=== PATIENT | female | born 1960 | race Caucasian/White ===

== ENCOUNTER → 2016-05-23 | Outpatient (CLI) | payer OTHER ==
--- NOTE | 2016-05-23 13:26 | US ---
EXAMINATION TYPE: US kidneys/renal and bladder DATE OF EXAM: 05/23/2016 12:43 PM COMPARISON: CT on PACS CLINICAL HISTORY: R31.9 Hematuria. EXAM MEASUREMENTS: Right Kidney: 10.0 x 5.1 x 3.9 cm Left Kidney: 10.0 x 5.0 x 4.6 cm Post Void Residual Volume: 9.0 mL Findings: Right Kidney: no hydro or masses seen Left Kidney: multiple small hyperechoic foci with largest shadowing noted mid pole = 0.3 x 0.3 x 0.4c m. Bladder: wnl Bilateral Jets seen: yes Normal Post Void Residual: yes IMPRESSION: Nonobstructing left-sided nephrolithiasis.
== END | disposition home or self-care (01) ==
LOC: RADUSWWP 12:13
PROVIDERS: ATTEND Family Medicine
DX: N20.0 Calculus of kidney (principal)
CPT/HCPCS: 76770

== ENCOUNTER → 2016-08-04 | Outpatient (CLI) | payer MEDICARE, OTHER ==
--- NOTE | 2016-08-04 19:50 | MR ---
EXAMINATION TYPE: MR brain wo con DATE OF EXAM: 08/04/2016 2:15 PM COMPARISON: CT 12/31/2013 HISTORY: 55-year-old female intermittent lightheadedness TECHNIQUE: Multiplanar, multisequence images of the brain and brainstem were acquired without IV con trast. Diffusion weighted imaging is performed. FINDINGS: No evidence for acute infarction, hemorrhage, mass, mass effect, midline shift, herniation, effacemen t of basal cisterns, or extra-axial fluid collection. The ventricles and sulci are age-appropriate. Major intracranial flow voids are intact. T2/FLAIR weighted sequences show moderate scattered burden of right white matter change located withi n the periventricular, subcortical, and deep white matter of both cerebral hemispheres. These number approximately 50-60 foci on each side. Midline structures demonstrate normal morphology. The craniocervical junction is normal. The visualized sinuses are clear and the globes are intact. IMPRESSION: 1. No acute intracranial abnormality seen. 2. Moderate scattered burden of T2 bright white matter change. This is nonspecific and probably relat es to chronic small vessel ischemic disease. Uncontrolled hypertension, vasculitis, and other demyeli nating processes are also in the differential.
== END | disposition home or self-care (01) ==
LOC: RADMRIMAIN 13:09
PROVIDERS: ATTEND Family Medicine
DX: R90.82 White matter disease, unspecified (principal); R42 Dizziness and giddiness
CPT/HCPCS: 70551

== ENCOUNTER → 2016-10-09 | Outpatient (CLI) | payer MEDICARE, OTHER ==
--- NOTE | 2016-10-09 22:25 | CONS ---
DATE OF CONSULTATION: REASON FOR CONSULTATION: Chronic insomnia. 56 -year-old female patient suffering from chronic insomnia. She is known to have chronic anxiety/depression/bipolar borderline personality along with history of fibromyalgia, peripheral neuropathy and chronic pain. The patient is coming in and she is concerned that her sleep quality is poor. She is averaging around 5 hours of sleep and she would like to typically get around 7 to 8 hours; however, she is unable to. It takes around 50 minutes to fall asleep, and it seems that she is waking up in the middle of night and sometimes unable to go back to sleep. She also admits to snore and occasionally she stops breathing as told by family members. In terms of her chronic insomnia, the patient is on the appropriate lifestyle adjustments. She is not drinking coffee. She is not taking any form of caffeinated beverages. She has tried Ambien and Lunesta in the past without any benefit. She is currently on a combination of clonidine 1 mg at nighttime, Trazodone 50 mg at nighttime, Vistaril and melatonin. She is working with Dr. Segura from psychiatry. She is feeling tired and sleepy during the day and she has trouble paying attention. No sleepwalking. No sleeptalking. No restlessness in the lower extremities. No leg kicks. ( ). PAST MEDICAL HISTORY: Anxiety/depression, hypothyroidism, peripheral neuropathy, fibromyalgia, chronic back pain, borderline personality disorder, chronic insomnia, and hypothyroidism. Surgical history is arthroscopy. ALLERGIES: Not known. MEDICATIONS: Include: 1. Klonopin 1 mg at bedtime. 2. Trazodone 30 mg 1 tablet at bedtime. 3. Vistaril 50 mg p.o. daily. 4. Synthroid 88 mcg p.o. daily. SOCIAL HISTORY: Smoker, 1 pack of cigarettes a day. No substance abuse. No alcoholism. No coffee intake. No stimulant intake. No IV drugs. FAMILY HISTORY: Negative for sleep apnea. REVIEW OF SYSTEMS: Twelve-point review of systems was done. Positive findings were mentioned above in the history of present illness. She looks very cachectic and thin. She takes less than 1000 calories of diet on a daily basis. BP is 122/55, pulse 60, respirations 14, temperature 98.2, saturation 95% on room air. Weight is 100, height is 63 inches. Neck size is 11. Salome score is 0. GENERAL APPEARANCE: Calm, comfortable. HEENT: Negative for JVD. There is no goiter, neck mass. LUNGS: Clear to auscultation. HEART: Sounds are regular rate and rhythm. Normal S1, S2. ABDOMEN: Soft, nontender. No organomegaly. EXTREMITIES: No edema. No cyanosis or clubbing. IMPRESSIONS: 1. Chronic insomnia. 2. Suspect obstructive sleep apnea contributing to her insomnia. 3. Fibromyalgia. 4. Chronic anxiety and depression. 5. Borderline personality disorder. 6. Hypothyroidism. 7. Peripheral neuropathy. PLAN: 1. Continue same medications. 2. Perform polysomnogram to assess the quality of her sleep, her ability to induce and maintain sleep and look for any other causes that can interrupt impaired sleep quality. 3. We will follow and make further recommendations based on results of the sleep study.
== END ==
LOC: SLEEP 16:52
PROVIDERS: ATTEND Internal Medicine Critical Care Medicine
DX: F51.04 Psychophysiologic insomnia (principal); M79.7 Fibromyalgia; F41.9 Anxiety disorder, unspecified; F32.9 Major depressive disorder, single episode, unspecified; E03.9 Hypothyroidism, unspecified; G62.9 Polyneuropathy, unspecified; Z79.899 Other long term (current) drug therapy
CPT/HCPCS: 99211

== ENCOUNTER → 2016-11-16 | Outpatient (CLI) | payer MEDICARE, OTHER ==
--- NOTE | 2016-11-16 17:22 | XR ---
EXAMINATION TYPE: XR ankle complete RT DATE OF EXAM: 11/16/2016 COMPARISON: NONE HISTORY: Pain and swelling TECHNIQUE: 3 views FINDINGS: Ankle mortise is anatomic. I see no fracture nor dislocation. Joint spaces are fairly joie l. IMPRESSION: Negative right ankle exam.
--- NOTE | 2016-11-16 17:23 | XR ---
EXAMINATION TYPE: XR abdomen acute w cxr DATE OF EXAM: 11/16/2016 COMPARISON: NONE HISTORY: TECHNIQUE: Supine, upright, and left side down lateral decubitus views of the abdomen are obtained. FINDINGS: Heart and mediastinum are normal. Lungs are clear. Bowel gas pattern is normal. There is no sign of i ntestinal obstruction or pneumoperitoneum. Fecal pattern is normal. There is no evidence of a mass. T here are clips from cholecystectomy. There are no pathologic calcifications over the kidneys. IMPRESSION: Nonacute abdomen. Normal chest.
== END | disposition home or self-care (01) ==
LOC: RADXRMAIN 16:47
PROVIDERS: ATTEND Family Medicine
DX: M25.471 Effusion, right ankle (principal); K59.00 Constipation, unspecified
CPT/HCPCS: 74022

== ENCOUNTER → 2017-04-23 | Outpatient (CLI) | payer MEDICARE, OTHER ==
--- NOTE | 2017-04-23 21:59 | WWHP ---
[facility] - HISTORY AND PHYSICAL DATE OF DICTATION: 04/23/2017 CHIEF COMPLAINT: The patient is here for her routine gynecologic exam. HPI: This is a 56-year-old, G6, P1-0-5-1 with an LMP of 2003. The patient is without gynecologic complaints. She is concerned that she has lost some muscle mass in the abdomen. She attributes this to the multiple abortions she had in the past. She is otherwise without complaints. She denies any postmenopausal bleeding. PAST MEDICAL HISTORY: Osteoporosis, history of kidney stones, depression, anxiety, fibromyalgia, hypothyroidism, and neuropathy. MEDICATIONS: 1. Fosamax 70 mg weekly. 2. Levothyroxine 88 mcg daily. 3. BuSpar 15 mg b.i.d. ALLERGIES: No known drug allergies. 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 SOCIAL HISTORY: She smokes about 12 cigarettes per day and denies alcohol and drug use. She is single and has been with her boyfriend since about 2013, but does not live with him and is not sexually active with him. She is considered disabled. REVIEW OF SYSTEMS: She has lost about 7 pounds over the last year. She denies respiratory or cardiac problems GI she has been having some intermittent constipation. PHYSICAL EXAM: Blood pressure 138/79, height 5 feet 2 inches, weight 97 pounds. BMI 18, temperature 98.2, pulse 69. This is a well-developed, thin white female who is alert and oriented x3, in no acute distress. HEENT is within normal limits. NECK: Supple without mass or thyromegaly. Chest and LUNGS: Clear to auscultation. HEART: Regular rate and rhythm. Breasts are without mass or discharge. Axillary exam is negative for adenopathy. Back negative for CVA tenderness. ABDOMEN: Soft, nontender, without palpable masses. Pelvic exam external genitalia reveals an irregular raised lesion of the left vulva on the labia majora measuring approximately 1.5 x 1.0 cm. The patient states this has been there a long time, but would like to have it removed. There are no other external genitalia lesions. Cervix and vagina reveals moderate atrophy without lesions. There is no evidence of prolapse. There is no evidence of cystocele and there is minimal bladder and urethral movement with cough and Valsalva. The uterus is small and mid to anterior in position and is nontender. There are no palpable adnexal masses or tenderness. Rectovaginal exam is negative for mass or tenderness and is negative for occult blood extremities nontender. IMPRESSION: 1. 56-year-old menopausal female with left vulvar lesion, which is slightly irregular, measuring approximately 1.5 x 1.0 cm. 2. Otherwise unremarkable gynecologic exam. PLAN: 1. Pap smear was deferred since she had a normal one last year. 2. Self breast examination was discussed. 3. Mammogram is due and a slip was given the patient for this. 4. Osteoporosis management was discussed. We have discussed the importance of adequate calcium, vitamin D and regular exercise. She will continue on Fosamax as prescribed by her primary care physician. 5. She will return at a later date for removal of the vulvar lesion and this will be sent for pathological examination. She will be scheduled for this appointment. 6. We have discussed the importance of quitting smoking. We discussed possible complications with smoking, including increased risk for COPD, lung cancer, worsening of osteoporosis as well as wasting away of muscles. 7. She will return in one year. MMODL / IJN: [id number] /
== END | disposition home or self-care (01) ==
LOC: WWCWWP 14:31
PROVIDERS: ATTEND Obstetrics & Gynecology
DX: Z53.9 Procedure and treatment not carried out, unspecified reason (principal)

== ENCOUNTER → 2017-05-01 | Day surgery (SDC) | payer MEDICARE, OTHER ==
--- NOTE | 2017-05-01 11:33 | P.PCN ---
Date of Procedure: 05/01/17 Preoperative Diagnosis: Left vulvar skin lesion Postoperative Diagnosis: Same Procedure(s) Performed: Excision of left vulvar skin lesion Anesthesia: local Surgeon: Ben Langston Estimated Blood Loss (ml): 1 Pathology: other (Left vulvar skin lesion) Condition: stable Disposition: same day Indications for Procedure: This was a 56 year old female with an LMP of 2003. The patient was found to have a left labia majora skin lesion which she states has grown larger during the past year. Operative Findings: The lesion on the left labia majora measured 1.6x1.0 cm. It appeared brown, raised and irregular. Description of Procedure: The procedure and possible risks and complications were discussed with the patient. The patient was placed in the lithotomy position. Betadine was used to prep the area. The lesion on the left labia majora measured 1.6x1.0 cm. Approximately 3cc of Lidocaine 1% was used for local anesthesia. Following determination of adequate anesthesia, the lesion was excised with a scalpel. A silver nitrate stick was used to stop small bleeding areas. 3-0 Vicryl suture was used to close the defect. Two interrupted sutures were place. The site was hemostatic. Antibiotic ointment and dressing were applied. The patient tolerated the procedure well. The EBL was 1cc. There were no complications. The lesion was sent for pathologic examination. The patient was instructed to remove the dressing in 24 hours, then apply and an antibiotic ointment two times daily. She was instructed to call if problems and to return in 2 weeks for a recheck and suture removal.
== END ==
LOC: WWCWWP 09:55
PROVIDERS: ATTEND Obstetrics & Gynecology
DX: A63.0 Anogenital (venereal) warts (principal)
CPT/HCPCS: 56605; 88305

== ENCOUNTER → 2017-10-07 | Outpatient (CLI) | payer MEDICARE, OTHER ==
[2017-10-07 15:08] LABS: Basophils % (A) 0 %; Eosinophils # (A) 0.1 k/uL (0-0.7); Eosinophils % (A) 3 %; HGB 14.9 gm/dL (11.4-16.0); Lymphocytes # (A) 1.4 k/uL (1.0-4.8); Lymphocytes % (A) 29 %; MCH 32.6 pg (25.0-35.0); MCHC 33.7 g/dL (31.0-37.0); MCV 96.7 fL (80.0-100.0); Mean Platelet Volume 6.3; Monocytes # (A) 0.3 k/uL (0-1.0); Monocytes % (A) 6 %; Neutrophils # (A) 2.9 k/uL (1.3-7.7); Neutrophils % (A) 61 %; Platelet Count 192 k/uL (150-450); RBC 4.55 m/uL (3.80-5.40); RDW 12.7 % (11.5-15.5); WBC 4.7 k/uL (3.8-10.6)
[2017-10-07 15:24] LABS: ALT 28 U/L (9-52); AST 25 U/L (14-36); Albumin 4.4 g/dL (3.5-5.0); Alkaline Phosphatase 50 U/L (38-126); Anion Gap 9 mmol/L; Blood Urea Nitrogen 12 mg/dL (7-17); Calcium 9.6 mg/dL (8.4-10.2); Carbon Dioxide 33 mmol/L (22-30); Chloride 99 mmol/L (98-107); Creatine Kinase 44 U/L (30-135); Glucose 92 mg/dL (74-99); Potassium 4.6 mmol/L (3.5-5.1); Sodium 141 mmol/L (137-145); Total Bilirubin 0.8 mg/dL (0.2-1.3); Total Protein 6.8 g/dL (6.3-8.2)
[2017-10-07 16:22] LABS: T4, Free (Free Thyroxine) 1.23 ng/dL (0.78-2.19)
[2017-10-08 01:18] LABS: Folate, Serum 20.8 ng/mL
== END | disposition home or self-care (01) ==
LOC: LABWHC1 14:48
PROVIDERS: ATTEND Family Medicine
DX: M79.89 Other specified soft tissue disorders (principal); E03.9 Hypothyroidism, unspecified; R31.9 Hematuria, unspecified
CPT/HCPCS: 36415; 80053; 82306; 82550; 82607; 82746; 84439; 84443; 85025

== ENCOUNTER 2017-11-11 17:03 | Observation (INO) | payer MEDICARE, OTHER ==
[2017-11-11 18:11] LABS: Amphetamine Screen,Urine Not Detected (NotDetected); Barbiturate Screen,Urine Not Detected (NotDetected); Benzodiazepines Screen,Urine Not Detected (NotDetected); Cocaine Screen,Urine Not Detected (NotDetected); Methadone Screen, Urine Not Detected (NotDetected); Opiate Screen,Urine Not Detected (NotDetected); Oxycodone Screen, Urine Not Detected (NotDetected); Phencyclidine Screen,Urine Not Detected (NotDetected); Tricyclic Antidepressant,Urine Not Detected (NotDetected); Urn Cannabinoid Scrn Not Detected (NotDetected)
[2017-11-11 18:14] LABS: Appearance,Urine Clear (Clear); Bilirubin,Urine Negative (Negative); Blood,Urine Small (Negative); Calcium Oxalate Crystals,Urine Rare /hpf; Color,Urine Colorless; Glucose,Urine (UA) Negative (Negative); Ketones,Urine Negative (Negative); Leukocyte Esterase,Urine Negative (Negative); Mucus,Urine Rare /hpf; Nitrite,Urine Negative (Negative); Protein,Urine Negative (Negative); RBC,Urine <1 /hpf (0-5); Specific Gravity,Urine 1.002 (1.001-1.035); Urobilinogen,Urine <2.0 mg/dL (<2.0)
--- NOTE | 2017-11-11 18:15 | ED ---
Psych HPI - General Source: patient, police, EMS, RN notes reviewed Mode of arrival: EMS Limitations: no limitations <Humberto Bustos - Last Filed: 11/11/17 18:14> <Simone Johnson - Last Filed: 11/11/17 22:09> - General Chief Complaint: Psychiatric Symptoms Stated Complaint: EPS eval Time Seen by Provider: 11/11/17 17:09 - History of Present Illness Initial Comments: This a 57-year-old female presents emergency Department with police for psychiatric evaluation. Patient reportedly was threatening to harm herself with a knife. She states that she was a cut her wrist. She is denying this at this time stating that she was just upset that she's had her back weekend. Patient reportedly took 3 Flexeril but states that she was not trying to harm herself. Patient also states that she drank a few beers today. Patient denies any homicidal ideation denies any drug use. Patient does have a history of psychiatric disorder is currently being seen at [facility]. She denies chest pain, shortness breath, headache, dizziness, nausea or vomiting. (Humberto Bustos) - Related Data Home Medications Medication Instructions Recorded Confirmed DULoxetine HCL [Cymbalta] 60 mg PO BID 11/11/17 11/11/17 Levothyroxine Sodium [Synthroid] 100 mcg PO DAILY 11/11/17 11/11/17 clonazePAM [KlonoPIN] 1 mg PO HS 11/11/17 11/11/17 diphenhydrAMINE [Benadryl] 50 mg PO BID 11/11/17 11/11/17 traZODone HCL 50 mg PO HS 11/11/17 11/11/17 Previous Rx's Medication Instructions Recorded busPIRone HCl [Buspar] 30 mg PO BID #60 tab 01/11/14 traZODone HCL 100 mg PO HS 5 Days tab 03/23/16 Allergies Allergy/AdvReac Type Severity Reaction Status Date / Time No Known Allergies Allergy Unverified 11/11/17 17:35 Review of Systems ROS Other: All systems not noted in ROS Statement are negative. <Humberto Bustos - Last Filed: 11/11/17 18:14> ROS Other: All systems not noted in ROS Statement are negative. <Simone Johnson - Last Filed: 11/11/17 22:09> ROS Statement: Those systems with pertinent positive or pertinent negative responses have been documented in the HPI. Past Medical History Past Medical History: Fibromyalgia, Thyroid Disorder Additional Past Medical History / Comment(s): muscle wasting History of Any Multi-Drug Resistant Organisms: None Reported Past Surgical History: Orthopedic Surgery Additional Past Surgical History / Comment(s): Surgey on bilateral knees in 2005. Torn cartilage. Gallstones surgically removed. carpal tunnel right hand surgery Past Anesthesia/Blood Transfusion Reactions: No Reported Reaction Additional Past Anesthesia/Blood Transfusion Reaction / Comment(s): Patient denies. Past Psychological History: Anxiety, Depression, Panic Disorder Smoking Status: Heavy tobacco smoker Past Alcohol Use History: Occasional Past Drug Use History: None Reported - Past Family History Mother Family Medical History: Cancer Father Family Medical History: Cancer Additional Family Medical History / Comment(s): Mother and father from lung cancer. <Humberto Bustos - Last Filed: 11/11/17 18:14> General Exam General appearance: alert, in no apparent distress, anxious Head exam: Present: atraumatic, normocephalic, normal inspection Eye exam: Present: normal appearance, PERRL, EOMI. Absent: scleral icterus, conjunctival injection, periorbital swelling ENT exam: Present: normal exam, normal oropharynx, mucous membranes moist, TM's normal bilaterally Neck exam: Present: normal inspection. Absent: tenderness, meningismus, lymphadenopathy Respiratory exam: Present: normal lung sounds bilaterally. Absent: respiratory distress, wheezes, rales, rhonchi, stridor Cardiovascular Exam: Present: regular rate, normal rhythm, normal heart sounds. Absent: systolic murmur, diastolic murmur, rubs, gallop, clicks Neurological exam: Present: alert, oriented X3, CN II-XII intact Psychiatric exam: Present: agitated, anxious Skin exam: Present: warm, dry, intact, normal color. Absent: rash <Humberto Bustos - Last Filed: 11/11/17 18:14> Course <Humberto Bustos - Last Filed: 11/11/17 18:14> <Simone Johnson - Last Filed: 11/11/17 22:09> Vital Signs 11/11/17 17:14 Temperature 100.0 F H Pulse Rate 81 Respiratory 20 Rate Blood Pressure 123/70 O2 Sat by Pulse 97 Oximetry - Reevaluation(s) Reevaluation #1: 11/11/17 22:08 Patient was earlier seen by mental health services however was too drowsy to be evaluated. Patient reevaluated by myself, Dr. Johnson. Patient remains drowsy. Patient is easily arousable. Patient does not fully oriented. No meningismus. Dr. Laird has been paged for hospital admission. (Simone Johnson) - Lab Data Lab Results 11/11/17 Range/Units 17:16 Urine Color Colorless Urine Appearance Clear (Clear) Urine pH 6.0 (5.0-8.0) Ur Specific [place] 1.002 (1.001-1.035) Urine Protein Negative (Negative) Urine Glucose (UA) Negative (Negative) Urine Ketones Negative (Negative) Urine Blood Small H (Negative) Urine Nitrite Negative (Negative) Urine Bilirubin Negative (Negative) Urine Urobilinogen <2.0 (<2.0) mg/dL Ur Leukocyte Esterase Negative (Negative) Urine RBC <1 (0-5) /hpf Calcium Oxalate Crystal Rare H (None) /hpf Urine Mucus Rare H (None) /hpf Urine Opiates Screen Not Detected (NotDetected) Ur Oxycodone Screen Not Detected (NotDetected) Urine Methadone Screen Not Detected (NotDetected) Ur Propoxyphene Screen Not Detected (NotDetected) Ur Barbiturates Screen Not Detected (NotDetected) U Tricyclic Antidepress Not Detected (NotDetected) Ur Phencyclidine Scrn Not Detected (NotDetected) Ur Amphetamines Screen Not Detected (NotDetected) U Methamphetamines Scrn Not Detected (NotDetected) U Benzodiazepines Scrn Not Detected (NotDetected) Urine Cocaine Screen Not Detected (NotDetected) U Marijuana (THC) Screen Not Detected (NotDetected) Disposition <Humberto Bustos - Last Filed: 11/11/17 18:14> Is patient prescribed a controlled substance at d/c from ED?: No Decision Time: 22:09 <Simone Johnson - Last Filed: 11/11/17 22:09> Clinical Impression: Suicide attempt, Drug overdose Disposition: ADMITTED IP TO THIS HOSP Referrals: None,Stated [Primary Care Provider] - 1-2 days
[2017-11-11] MEDS ORDERED: NALOXONE 0.4 MG/ML 1 ML VIAL IV PRN (22:10)
[2017-11-11 23:26] LABS: Basophils % (A) 1 %; Eosinophils # (A) 0.1 k/uL (0-0.7); Eosinophils % (A) 3 %; HCT 41.2 % (34.0-46.0); HGB 13.9 gm/dL (11.4-16.0); Lymphocytes # (A) 1.6 k/uL (1.0-4.8); Lymphocytes % (A) 45 %; MCHC 33.8 g/dL (31.0-37.0); MCV 94.6 fL (80.0-100.0); Mean Platelet Volume 6.7; Monocytes # (A) 0.3 k/uL (0-1.0); Monocytes % (A) 8 %; Neutrophils # (A) 1.5 k/uL (1.3-7.7); Neutrophils % (A) 42 %; Platelet Count 182 k/uL (150-450); RBC 4.36 m/uL (3.80-5.40); RDW 12.4 % (11.5-15.5); WBC 3.7 k/uL (3.8-10.6)
[2017-11-11] MEDS: SODIUM CHLORIDE 0.9% 1,000 ML IV SCH (23:34)
[2017-11-11 23:35] LABS: ALT 31 U/L (9-52); AST 30 U/L (14-36); Acetaminophen <10.0 ug/mL; Albumin 3.9 g/dL (3.5-5.0); Alkaline Phosphatase 47 U/L (38-126); Anion Gap 3 mmol/L; Blood Urea Nitrogen 5 mg/dL (7-17); Calcium 9.3 mg/dL (8.4-10.2); Carbon Dioxide 32 mmol/L (22-30); Chloride 106 mmol/L (98-107); Glucose 87 mg/dL (74-99); Potassium 4.6 mmol/L (3.5-5.1); Salicylate <1.0 mg/dL; Sodium 141 mmol/L (137-145); Total Bilirubin 0.8 mg/dL (0.2-1.3); Total Protein 6.2 g/dL (6.3-8.2)
[2017-11-12 05:49] VITALS: BMI 17.7
[2017-11-12] MEDS: SODIUM CHLORIDE 0.9% 1,000 ML IV SCH (12:54)
[2017-11-12 15:38] VITALS: BP 133/77; PULSE 70; RESP 16; TEMP 97.2
--- NOTE | 2017-11-12 17:06 | P.HPIM ---
History of Present Illness 57-year-old female came to ER for psychiatric evaluation apparently took about 4 pills of Flexeril because of his the itch patient was admitted to medicine patient the common is metabolic profile essentially within normal limits patient is awake and alert. Patient apparently was threatening to harm herself with knife. But patient denied any suicidal or homicidal ideations to me patient is appropriate. Patient was evaluated by psychiatric related who cleared her for discharge patient will be discharged today. Patient denied any suicidal ideations. Patient evidently had history of bipolar disorder and multiple psychiatric hospitalizations patient is not willing to voluntarily get admitted to psychiatric floor. Patient states she took Flexeril to go to sleep was not trying to hurt herself or hurt anyone. Review of Systems REVIEW OF SYSTEMS: CONSTITUTIONAL: No fever, no malaise, no fatigue. HEENT: No recent visual problems or hearing problems. Denied any sore throat. CARDIOVASCULAR: No chest pain, orthopnea, PND, no palpitations, no syncope. PULMONARY: No shortness of breath, no cough, no hemoptysis. GASTROINTESTINAL: No diarrhea, no nausea, no vomiting, no abdominal pain. Normoactive bowel sounds. NEUROLOGICAL: No headaches, no weakness, no numbness. HEMATOLOGICAL: Denies any bleeding or petechiae. GENITOURINARY: Denies any burning micturition, frequency, or urgency. MUSCULOSKELETAL/RHEUMATOLOGICAL: Denies any joint pain, swelling, or any muscle pain. ENDOCRINE: Denies any polyuria or polydipsia. The rest of the 14-point review of systems is negative. Past Medical History Past Medical History: Fibromyalgia, Thyroid Disorder Additional Past Medical History / Comment(s): muscle wasting History of Any Multi-Drug Resistant Organisms: None Reported Past Surgical History: Orthopedic Surgery Additional Past Surgical History / Comment(s): Surgey on bilateral knees in 2005. Torn cartilage. Gallstones surgically removed. carpal tunnel right hand surgery Past Anesthesia/Blood Transfusion Reactions: No Reported Reaction Additional Past Anesthesia/Blood Transfusion Reaction / Comment(s): Patient denies. Past Psychological History: Anxiety, Depression, Panic Disorder Additional Psychological History / Comment(s): [place] Personality Disorder, Body Dysmorphia. Patient reports she is open with [facility]. Dr. Rosenthal is her psychiatrist and Alina Urban is her therapist. Patient has history of 2 [facility] addmission. Most recent was at [facility] for suicide attempt. Smoking Status: Heavy tobacco smoker Past Alcohol Use History: Occasional Additional Past Alcohol Use History / Comment(s): pt denies alcohol use. Past Drug Use History: Marijuana - Past Family History Mother Family Medical History: Cancer Father Family Medical History: Cancer Additional Family Medical History / Comment(s): Mother and father from lung cancer. Medications and Allergies Home Medications Medication Instructions Recorded Confirmed Type busPIRone HCl [Buspar] 30 mg PO BID #60 tab 01/11/14 11/11/17 Rx traZODone HCL 100 mg PO HS 5 Days tab 03/23/16 11/11/17 Rx DULoxetine HCL [Cymbalta] 60 mg PO BID 11/11/17 11/11/17 History Levothyroxine Sodium [Synthroid] 100 mcg PO DAILY 11/11/17 11/11/17 History clonazePAM [KlonoPIN] 1 mg PO HS 11/11/17 11/11/17 History diphenhydrAMINE [Benadryl] 50 mg PO BID 11/11/17 11/11/17 History traZODone HCL 50 mg PO HS 11/11/17 11/11/17 History Allergies Allergy/AdvReac Type Severity Reaction Status Date / Time No Known Allergies Allergy Unverified 11/11/17 17:35 Physical Exam Vitals: Vital Signs Temp Pulse Pulse Resp BP BP Pulse Ox 11/12/17 16:00 16 11/12/17 14:30 97.2 F L 70 16 133/77 93 L 11/12/17 12:34 58 L 24 11/12/17 08:00 18 11/12/17 05:22 97.3 F L 60 19 133/70 93 L 11/11/17 23:49 97.0 F L 62 17 126/81 99 11/11/17 22:00 97.9 F 57 L 16 126/71 96 11/11/17 17:14 100.0 F H 81 20 123/70 97 Intake and Output 11/12/17 11/12/17 11/12/17 06:59 14:59 22:59 Intake Total 600 Balance 600 Intake: Oral 600 Other: # Voids 1 3 Weight 43.99 kg 43.99 kg PHYSICAL EXAMINATION: GENERAL: The patient is alert and oriented x3, not in any acute distress. Well developed, well nourished. HEENT: Pupils are round and equally reacting to light. EOMI. No scleral icterus. No conjunctival pallor. Normocephalic, atraumatic. No pharyngeal erythema. No thyromegaly. CARDIOVASCULAR: S1 and S2 present. No murmurs, rubs, or gallops. PULMONARY: Chest is clear to auscultation, no wheezing or crackles. ABDOMEN: Soft, nontender, nondistended, normoactive bowel sounds. No palpable organomegaly. MUSCULOSKELETAL: No joint swelling or deformity. EXTREMITIES: No cyanosis, clubbing, or pedal edema. Patient does have couple scratches in the left forearm which appeared to be from knife NEUROLOGICAL: Gross neurological examination did not reveal any focal deficits. SKIN: No rashes. Results CBC & Chem 7: 11/11/17 23:11 11/11/17 23:11 Labs: Abnormal Lab Results - Last 24 Hours (Table) 11/11/17 11/11/17 11/11/17 Range/Units 17:16 23:11 23:11 WBC 3.7 L (3.8-10.6) k/uL Carbon Dioxide 32 H (22-30) mmol/L BUN 5 L (7-17) mg/dL Total Protein 6.2 L (6.3-8.2) g/dL Urine Blood Small H (Negative) Calcium Oxalate Crystal Rare H (None) /hpf Urine Mucus Rare H (None) /hpf Thrombosis Risk Factor Assmnt - Choose All That Apply Any of the Below Risk Factors Present?: Yes Each Factor Represents 1 point: Age 41-60 years Other Risk Factors: No Other congenital or acquired thrombophilia - If yes, enter type in comment: No Thrombosis Risk Factor Assessment Total Risk Factor Score: 1 Thrombosis Risk Factor Assessment Level: Low Risk Assessment and Plan Plan: Overdose on Flexeril: Patient is clinically stable at this point of time where he'll wake patient is medically stable to be discharged patient will be discharged if cleared by psychiatric -Possibly of suicidal ideations although she denied any suicide attempt to me. Patient of discharge depending on psychiatric evaluation. -Hypothyroidism -Fibromyalgia. -Continued smoking with some mild tracheobronchitis and possibility of COPD without any significant exacerbation, counseling regarding smoking was provided and do not believe patient will require antibiotics.
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
== END 2017-11-12 19:05 | disposition home or self-care (01) ==
LOC: EC 17:03 → 4MS4W 22:12
PROVIDERS: ADMIT Hospitalist; ATTEND Hospitalist
DX: T48.1X2A Poisoning by skeletal muscle relaxants [neuromuscular blocking agents], intentional self-harm, initial encounter (principal); M79.7 Fibromyalgia; E03.9 Hypothyroidism, unspecified; J40 Bronchitis, not specified as acute or chronic; M62.50 Muscle wasting and atrophy, not elsewhere classified, unspecified site; F41.0 Panic disorder [episodic paroxysmal anxiety]; F31.9 Bipolar disorder, unspecified; F60.9 Personality disorder, unspecified; F41.9 Anxiety disorder, unspecified; Z90.49 Acquired absence of other specified parts of digestive tract; Z91.5 Personal history of self-harm; F17.200 Nicotine dependence, unspecified, uncomplicated; Z79.890 Hormone replacement therapy; Z79.899 Other long term (current) drug therapy; Z80.1 Family history of malignant neoplasm of trachea, bronchus and lung
CPT/HCPCS: 99285 ×2; 82075; 80053; 85025; 81001; 80306; 83520 ×2; G0378 ×2

== ENCOUNTER 2017-12-06 13:11 | Emergency (ER) | payer MEDICARE, OTHER ==
[2017-12-06 13:22] VITALS: RESP 18
[2017-12-06] MEDS ORDERED: SODIUM CHLORIDE 0.9% 500 ML IV STA (13:27)
[2017-12-06 13:41] LABS: Basophils % (A) 0 %; Eosinophils # (A) 0.1 k/uL (0-0.7); Eosinophils % (A) 1 %; HGB 13.9 gm/dL (11.4-16.0); Lymphocytes # (A) 2.2 k/uL (1.0-4.8); Lymphocytes % (A) 37 %; MCH 31.4 pg (25.0-35.0); MCHC 33.1 g/dL (31.0-37.0); Mean Platelet Volume 6.7; Monocytes # (A) 0.3 k/uL (0-1.0); Monocytes % (A) 6 %; Neutrophils # (A) 3.4 k/uL (1.3-7.7); Neutrophils % (A) 55 %; Platelet Count 232 k/uL (150-450); RBC 4.43 m/uL (3.80-5.40); RDW 12.6 % (11.5-15.5); WBC 6.1 k/uL (3.8-10.6)
--- NOTE | 2017-12-06 13:45 | ED ---
General Adult HPI - General Source: patient, EMS, RN notes reviewed Mode of arrival: EMS Limitations: no limitations <Ketan Leos - Last Filed: 12/06/17 16:51> <Alcon Zee - Last Filed: 12/06/17 19:21> - General Chief complaint: Psychiatric Symptoms Stated complaint: Overdose Time Seen by Provider: 12/06/17 13:15 - History of Present Illness Initial comments: This is a 57-year-old who presents to the emergency department after having overdosed on 8 BuSpar and 6 Klonopin as well as drink alcohol. Patient states she suicidal and she took the pills try to kill himself. Patient denies any other legal or illegal drugs. Patient was not very cooperative would not give me any history at this time other than this a physically she has no problems. ( Ketan Leos) - Related Data Home Medications Medication Instructions Recorded Confirmed Levothyroxine Sodium [Synthroid] 100 mcg PO DAILY 11/11/17 12/06/17 clonazePAM [KlonoPIN] 1 mg PO HS 11/11/17 12/06/17 diphenhydrAMINE [Benadryl] 50 mg PO BID 11/11/17 12/06/17 traZODone HCL 50 mg PO HS 11/11/17 12/06/17 FLUoxetine HCL [PROzac] 20 mg PO DAILY 12/06/17 12/06/17 Previous Rx's Medication Instructions Recorded busPIRone HCl [Buspar] 30 mg PO BID #60 tab 01/11/14 traZODone HCL 100 mg PO HS 5 Days tab 03/23/16 Allergies Allergy/AdvReac Type Severity Reaction Status Date / Time No Known Allergies Allergy Verified 12/06/17 13:22 Review of Systems ROS Other: All systems not noted in ROS Statement are negative. <Ketan Leos - Last Filed: 12/06/17 16:51> ROS Other: All systems not noted in ROS Statement are negative. <Alcon Zee - Last Filed: 12/06/17 19:21> ROS Statement: Those systems with pertinent positive or pertinent negative responses have been documented in the HPI. Past Medical History Past Medical History: Fibromyalgia, Thyroid Disorder Additional Past Medical History / Comment(s): muscle wasting History of Any Multi-Drug Resistant Organisms: None Reported Past Surgical History: Orthopedic Surgery Additional Past Surgical History / Comment(s): Surgey on bilateral knees in 2005. Torn cartilage. Gallstones surgically removed. carpal tunnel right hand surgery Past Anesthesia/Blood Transfusion Reactions: No Reported Reaction Additional Past Anesthesia/Blood Transfusion Reaction / Comment(s): Patient denies. Past Psychological History: Anxiety, Depression, Panic Disorder Smoking Status: Heavy tobacco smoker Past Alcohol Use History: Occasional Past Drug Use History: Marijuana - Past Family History Mother Family Medical History: Cancer Father Family Medical History: Cancer Additional Family Medical History / Comment(s): Mother and father from lung cancer. <Ketan Leos - Last Filed: 12/06/17 16:51> General Exam Limitations: no limitations <Ketan Leos - Last Filed: 12/06/17 16:51> <Alcon Zee - Last Filed: 12/06/17 19:21> - General Exam Comments Initial Comments: GENERAL: Patient is well-developed and well-nourished. Patient is nontoxic and well- hydrated and is in no acute distress. Patient appears intoxicated ENT: Neck is soft and supple. No significant lymphadenopathy is noted. Oropharynx is clear. Moist mucous membranes. Neck has full range of motion without eliciting any pain. EYES: The sclera were anicteric and conjunctiva were pink and moist. Extraocular movements were intact and pupils were equal round and reactive to light. Eyelids were unremarkable. PULMONARY: Unlabored respirations. Good breath sounds bilaterally. No audible rales rhonchi or wheezing was noted. CARDIOVASCULAR: There is a regular rate and rhythm without any murmurs gallops or rubs. ABDOMEN: Soft and nontender with normal bowel sounds. SKIN: Skin is clear with no lesions or rashes and otherwise unremarkable. NEUROLOGIC: Patient is alert and oriented x3. Cranial nerves II through XII are grossly intact. Motor and sensory are also intact. Normal speech, volume and content. Symmetrical smile. MUSCULOSKELETAL: Normal extremities with adequate strength and full range of motion. LYMPHATICS: No significant lymphadenopathy is noted PSYCHIATRIC: Patient states she suicidal and she is very agitated and aggressive. (Ketan Leos) Vital Signs 12/06/17 12/06/17 12/06/17 13:16 13:43 16:52 Temperature 98 F Pulse Rate 79 77 66 Respiratory 18 18 18 Rate Blood Pressure 122/61 107/55 122/58 O2 Sat by Pulse 95 96 98 Oximetry Procedures - Restraint - Face to Face Restraint Occurrence 1 Patient's Immediate Situation: Endangers others' safety Patient's Reaction to the Intervention: Uncooperative, Belligerent Patient's Medical & Behavioral Condition: Awake, Alert Need to Continue or Terminate Restraint or Seclusion: Continue Face to Face Eval of Restraint Date: 12/06/17 Face to Face Eval of Restraint Time: 13:34 <Ketan Leos - Last Filed: 12/06/17 16:51> Medical Decision Making - Lab Data Result diagrams: 12/06/17 13:26 12/06/17 13:26 <Ketan Leos - Last Filed: 12/06/17 16:51> - Lab Data Result diagrams: 12/06/17 13:26 12/06/17 13:26 <Alcon Zee - Last Filed: 12/06/17 19:21> - Medical Decision Making EKG shows normal sinus rhythm at 82 bpm IN interval 268 QRSs 84 Q-T intervals 398 QTC is 464. Patient's EKG shows no ST segment elevation or depression or T wave abnormalities are noted. Dr. Zee will be taking over the care of this patient at 5 PM (Ketan Leos) Patient's care is signed out at shift change awaiting sobriety and EPS evaluation. Patient is sober on reevaluation. She is cleared medically. She is alert and oriented, denies suicidal or homicidal ideation. She is evaluated by EPS, no need for inpatient treatment at this time. She will be discharged home with outpatient [facility] follow-up. (Alcon Zee) - Lab Data Lab Results 12/06/17 12/06/17 12/06/17 Range/Units 13:26 13:26 14:06 WBC 6.1 (3.8-10.6) k/uL RBC 4.43 (3.80-5.40) m/uL Hgb 13.9 (11.4-16.0) gm/dL Hct 42.0 (34.0-46.0) % MCV 95.0 (80.0-100.0) fL MCH 31.4 (25.0-35.0) pg MCHC 33.1 (31.0-37.0) g/dL RDW 12.6 (11.5-15.5) % Plt Count 232 (150-450) k/uL Neutrophils % 55 % Lymphocytes % 37 % Monocytes % 6 % Eosinophils % 1 % Basophils % 0 % Neutrophils # 3.4 (1.3-7.7) k/uL Lymphocytes # 2.2 (1.0-4.8) k/uL Monocytes # 0.3 (0-1.0) k/uL Eosinophils # 0.1 (0-0.7) k/uL Basophils # 0.0 (0-0.2) k/uL Sodium 140 (137-145) mmol/L Potassium 3.7 (3.5-5.1) mmol/L Chloride 104 (98-107) mmol/L Carbon Dioxide 23 (22-30) mmol/L Anion Gap 13 mmol/L BUN 11 (7-17) mg/dL Creatinine 0.69 (0.52-1.04) mg/dL Est GFR (CKD-EPI)AfAm >90 (>60 ml/min/1.73 sqM) Est GFR (CKD-EPI)NonAf >90 (>60 ml/min/1.73 sqM) Glucose 84 (74-99) mg/dL Calcium 9.6 (8.4-10.2) mg/dL Total Bilirubin 0.3 (0.2-1.3) mg/dL AST 25 (14-36) U/L ALT 21 (9-52) U/L Alkaline Phosphatase 47 (38-126) U/L Total Protein 6.8 (6.3-8.2) g/dL Albumin 4.4 (3.5-5.0) g/dL Urine HCG, Qual (Not Detectd) Salicylates <1.0 mg/dL Urine Opiates Screen Not Detected (NotDetected) Ur Oxycodone Screen Not Detected (NotDetected) Urine Methadone Screen Not Detected (NotDetected) Ur Propoxyphene Screen Not Detected (NotDetected) Acetaminophen <10.0 ug/mL Ur Barbiturates Screen Not Detected (NotDetected) U Tricyclic Antidepress Not Detected (NotDetected) Ur Phencyclidine Scrn Not Detected (NotDetected) Ur Amphetamines Screen Not Detected (NotDetected) U Methamphetamines Scrn Not Detected (NotDetected) U Benzodiazepines Scrn Not Detected (NotDetected) Urine Cocaine Screen Not Detected (NotDetected) U Marijuana (THC) Screen Detected H (NotDetected) Serum Alcohol 99 mg/dL 12/06/17 Range/Units 14:06 WBC (3.8-10.6) k/uL RBC (3.80-5.40) m/uL Hgb (11.4-16.0) gm/dL Hct (34.0-46.0) % MCV (80.0-100.0) fL MCH (25.0-35.0) pg MCHC (31.0-37.0) g/dL RDW (11.5-15.5) % Plt Count (150-450) k/uL Neutrophils % % Lymphocytes % % Monocytes % % Eosinophils % % Basophils % % Neutrophils # (1.3-7.7) k/uL Lymphocytes # (1.0-4.8) k/uL Monocytes # (0-1.0) k/uL Eosinophils # (0-0.7) k/uL Basophils # (0-0.2) k/uL Sodium (137-145) mmol/L Potassium (3.5-5.1) mmol/L Chloride (98-107) mmol/L Carbon Dioxide (22-30) mmol/L Anion Gap mmol/L BUN (7-17) mg/dL Creatinine (0.52-1.04) mg/dL Est GFR (CKD-EPI)AfAm (>60 ml/min/1.73 sqM) Est GFR (CKD-EPI)NonAf (>60 ml/min/1.73 sqM) Glucose (74-99) mg/dL Calcium (8.4-10.2) mg/dL Total Bilirubin (0.2-1.3) mg/dL AST (14-36) U/L ALT (9-52) U/L Alkaline Phosphatase (38-126) U/L Total Protein (6.3-8.2) g/dL Albumin (3.5-5.0) g/dL Urine HCG, Qual Not Detected (Not Detectd) Salicylates mg/dL Urine Opiates Screen (NotDetected) Ur Oxycodone Screen (NotDetected) Urine Methadone Screen (NotDetected) Ur Propoxyphene Screen (NotDetected) Acetaminophen ug/mL Ur Barbiturates Screen (NotDetected) U Tricyclic Antidepress (NotDetected) Ur Phencyclidine Scrn (NotDetected) Ur Amphetamines Screen (NotDetected) U Methamphetamines Scrn (NotDetected) U Benzodiazepines Scrn (NotDetected) Urine Cocaine Screen (NotDetected) U Marijuana (THC) Screen (NotDetected) Serum Alcohol mg/dL Disposition <Ketan Leos - Last Filed: 12/06/17 16:51> Is patient prescribed a controlled substance at d/c from ED?: No Time of Disposition: 19:20 <Alcon Zee - Last Filed: 12/06/17 19:21> Clinical Impression: Drug overdose, Depression, Alcohol abuse Disposition: HOME SELF-CARE Condition: Fair Instructions: Abuse of Alcohol (ED), Depression (ED) Additional Instructions: Please follow-up with [facility] and her primary care physician. Return with worsening or changing symptoms. Referrals: None,Stated [REFERRING] - 1-2 days
[2017-12-06 14:00] LABS: ALT 21 U/L (9-52); AST 25 U/L (14-36); Acetaminophen <10.0 ug/mL; Albumin 4.4 g/dL (3.5-5.0); Alkaline Phosphatase 47 U/L (38-126); Anion Gap 13 mmol/L; Blood Urea Nitrogen 11 mg/dL (7-17); Calcium 9.6 mg/dL (8.4-10.2); Carbon Dioxide 23 mmol/L (22-30); Chloride 104 mmol/L (98-107); Glucose 84 mg/dL (74-99); Potassium 3.7 mmol/L (3.5-5.1); Salicylate <1.0 mg/dL; Sodium 140 mmol/L (137-145); Total Bilirubin 0.3 mg/dL (0.2-1.3); Total Protein 6.8 g/dL (6.3-8.2)
[2017-12-06 14:03] LABS: Alcohol 99 mg/dL
[2017-12-06 14:31] LABS: Amphetamine Screen,Urine Not Detected (NotDetected); Barbiturate Screen,Urine Not Detected (NotDetected); Benzodiazepines Screen,Urine Not Detected (NotDetected); Cocaine Screen,Urine Not Detected (NotDetected); Methadone Screen, Urine Not Detected (NotDetected); Opiate Screen,Urine Not Detected (NotDetected); Oxycodone Screen, Urine Not Detected (NotDetected); Phencyclidine Screen,Urine Not Detected (NotDetected); Tricyclic Antidepressant,Urine Not Detected (NotDetected); Urn Cannabinoid Scrn Detected (NotDetected)
[2017-12-06 20:13] VITALS: BP 117/51; PULSE 58; TEMP 98.5
== END 2017-12-06 20:12 | disposition home or self-care (01) ==
LOC: EC 13:11
DX: T42.4X1A Poisoning by benzodiazepines, accidental (unintentional), initial encounter (principal); F32.9 Major depressive disorder, single episode, unspecified; F10.129 Alcohol abuse with intoxication, unspecified; E07.9 Disorder of thyroid, unspecified; F41.0 Panic disorder [episodic paroxysmal anxiety]; F17.200 Nicotine dependence, unspecified, uncomplicated; Z79.899 Other long term (current) drug therapy
CPT/HCPCS: 36415; 80053; 80306; 80320; 81025; 82075; 83520; 85025; 93005; 96360; 99285

== ENCOUNTER → 2017-12-17 | Outpatient (CLI) | payer MEDICARE, OTHER ==
--- NOTE | 2017-12-17 15:51 | CT ---
EXAMINATION TYPE: CT urogram wo/w con DATE OF EXAM: 12/17/2017 HISTORY: Hematuria CT DLP: 896mGycm Automated Exposure Control for Dose Reduction was Utilized. CONTRAST: CT scan of the abdomen and pelvis is performed without oral and without and with IV Contrast, patient injected with 100 ml mL of Isovue 300. Urogram protocol with Three-D reconstructed images created on independent workstation and reviewed. COMPARISON: Prior CT abdomen and pelvis study June 11, 2015. FINDINGS: KUB: Noncontrast images show single 3 mm calculus centrally mid pole level left kidney coronal image 61 on noncontrast study slightly larger in size versus prior study. There is no right-sided nephrolit hiasis. There is symmetric cortical medullary uptake and excretion from both kidneys without evidence of concerning solid or cystic renal mass or hydronephrosis identified bilaterally. Visualized portio n of both ureters show satisfactory opacity without suspicious dilatation or calcification. Bladder i s satisfactorily distended without worrisome intraluminal mass or wall thickening. LUNG BASES: There is minimal central left basilar linear scarring redemonstrated. LIVER/GB: Cholecystectomy clips are redemonstrated. Liver is felt mildly enlarged particularly left h epatic lobe without significant change from prior study. PANCREAS: No significant abnormality is seen. SPLEEN: No significant abnormality is seen. ADRENALS: No significant abnormality is seen. KIDNEYS: No significant abnormality is seen. BOWEL: Patient has very little intra-abdominal fat making evaluation of bowel is suboptimal. Evaluati on also suboptimal due to lack of enteric contrast. No suspicious dilatation is present. There are di verticula seen in the somewhat redundant sigmoid colon of the pelvis. No convincing evidence for acut e diverticulitis. UTERUS/ADNEXA: Anteverted uterus is noted. LYMPH NODES: No greater than 1cm abdominal or pelvic lymph nodes are appreciated. OSSEOUS STRUCTURES: Mild multilevel anterior spurring in the visualized spine facet arthropathy lower lumbar levels is present. OTHER: There is mild to moderate calcified plaque of aorta extending into branch vessels. IMPRESSION: There is slightly larger nonobstructing 3 mm calculus mid pole level left kidney. No worr isome mass identified.
== END | disposition home or self-care (01) ==
LOC: RADCTMAIN 13:14
PROVIDERS: ATTEND Urology
DX: N20.0 Calculus of kidney (principal)
CPT/HCPCS: 74178; 36415; 74400; Q9967

== ENCOUNTER → 2018-01-03 | Outpatient (CLI) | payer MEDICARE, OTHER ==
--- NOTE | 2018-01-03 13:23 | MR ---
EXAMINATION TYPE: MR brain wo con DATE OF EXAM: 01/03/2018 COMPARISON: Prior MRI brain August 04, 2016 HISTORY: Tremors of nervous system per order. Possible stroke with dizziness or hearing loss per carlos ent. TECHNIQUE: Multiplanar, multisequence imaging of the brain and brainstem is performed without IV cont rast. FINDINGS: Diffusion weighted images demonstrate no evidence of a recent infarct or other diffusion abnormality. There is no worrisome extra-axial fluid collection. The ventricular system and cisternal spaces are normal in size and appearance. The brain volume is age appropriate. There is redemonstration of scat tered foci T2 hyperintensity seen throughout the superficial, deep, and periventricular white matter. Roughly 50-80 scattered lesions are redemonstrated without significant interval change from prior st udy. No definitive infratentorial lesions are seen. Midline structures demonstrate normal morphology. The craniocervical junction appears within normal limits. Normal vascular flow voids are present. The visualized sinuses are clear and the globes are i ntact. IMPRESSION: Moderate to severe nonspecific white matter changes redemonstrated without significant in terval change. Findings could be product of chronic small vessel ischemic change. Other etiologies ar e not excluded.
== END | disposition home or self-care (01) ==
LOC: RADMRIMAIN 12:07
PROVIDERS: ATTEND Psychiatry & Neurology Neurology
DX: R90.89 Other abnormal findings on diagnostic imaging of central nervous system (principal); R25.1 Tremor, unspecified
CPT/HCPCS: 70551

== ENCOUNTER 2018-02-20 20:22 | Emergency (ER) | payer MEDICARE, OTHER ==
--- NOTE | 2018-02-20 22:24 | ED ---
Psych HPI - General Chief Complaint: Psychiatric Symptoms Stated Complaint: panic attack Time Seen by Provider: 02/20/18 22:04 Source: patient Mode of arrival: ambulatory - History of Present Illness Initial Comments: This patient is a 57-year-old woman presenting with concerns about anxiety and insomnia. The patient states that she had recently been changed from Klonopin, 1 mg, at bedtime to taking clonidine. She states that since that time she is having difficulty getting to sleep. She feels very anxious, and she also feels somewhat shaky. The patient states that she attempted to reach out to the crisis line and also to [facility], and she was referred to the emergency department to be seen. The patient is concerned that if she is left alone tonight she doesn't know what she will do. Complaint: other -: days(s) Associated Psychiatric Symptoms: racing thoughts History of same: Yes Quality: getting worse Improves With: none Worsens With: none Context: new medication(s) Associated Symptoms: insomnia - Related Data Home Medications Medication Instructions Recorded Confirmed diphenhydrAMINE [Benadryl] 50 mg PO BID 11/11/17 02/20/18 FLUoxetine HCL [PROzac] 20 mg PO DAILY 12/06/17 02/20/18 Levothyroxine Sodium [Synthroid] 88 mcg PO DAILY 02/20/18 02/20/18 cloNIDine HCL [Catapres] 0.2 mg PO BID 02/20/18 02/20/18 clonazePAM [KlonoPIN] 0.5 mg PO HS 02/20/18 02/20/18 traZODone HCL 300 mg PO HS 02/20/18 02/20/18 Previous Rx's Medication Instructions Recorded busPIRone HCl [Buspar] 30 mg PO BID #60 tab 01/11/14 Allergies Allergy/AdvReac Type Severity Reaction Status Date / Time No Known Allergies Allergy Verified 02/20/18 21:50 Review of Systems ROS Statement: Those systems with pertinent positive or pertinent negative responses have been documented in the HPI. ROS Other: All systems not noted in ROS Statement are negative. Constitutional: Denies: fever, chills Eyes: Denies: vision change Respiratory: Denies: cough, dyspnea Cardiovascular: Denies: chest pain, palpitations, edema Gastrointestinal: Denies: abdominal pain, vomiting, diarrhea Neurological: Denies: headache, weakness, numbness, paresthesias Psychiatric: Reports: anxiety. Denies: depression, auditory hallucinations, visual hallucinations, homicidal thoughts, suicidal thoughts Past Medical History Past Medical History: Fibromyalgia, Thyroid Disorder Additional Past Medical History / Comment(s): muscle wasting History of Any Multi-Drug Resistant Organisms: None Reported Past Surgical History: Orthopedic Surgery Additional Past Surgical History / Comment(s): Surgey on bilateral knees in 2005. Torn cartilage. Gallstones surgically removed. carpal tunnel right hand surgery Past Anesthesia/Blood Transfusion Reactions: No Reported Reaction Additional Past Anesthesia/Blood Transfusion Reaction / Comment(s): Patient denies. Past Psychological History: Anxiety, Depression, Panic Disorder Smoking Status: Heavy tobacco smoker Past Alcohol Use History: Occasional Past Drug Use History: Marijuana - Past Family History Mother Family Medical History: Cancer Father Family Medical History: Cancer Additional Family Medical History / Comment(s): Mother and father from lung cancer. General Exam Limitations: no limitations General appearance: alert, in no apparent distress Head exam: Present: atraumatic, normocephalic Eye exam: Present: normal appearance. Absent: scleral icterus, conjunctival injection ENT exam: Present: normal oropharynx Neck exam: Present: normal inspection Respiratory exam: Present: normal lung sounds bilaterally. Absent: respiratory distress, wheezes, rales, rhonchi, stridor Cardiovascular Exam: Present: regular rate, normal rhythm, normal heart sounds. Absent: systolic murmur, diastolic murmur, rubs, gallop GI/Abdominal exam: Present: soft. Absent: distended, tenderness, guarding, rebound, rigid Back exam: Present: normal inspection. Absent: CVA tenderness (R), CVA tenderness (L) Neurological exam: Present: alert, oriented X3. Absent: motor sensory deficit Psychiatric exam: Present: anxious. Absent: depressed, agitated, flat affect, manic, homicidal ideation, suicidal ideation Skin exam: Present: warm, dry, intact, normal color. Absent: rash Course Vital Signs 02/20/18 20:33 Temperature 98.2 F Pulse Rate 62 Respiratory 20 Rate Blood Pressure 147/60 O2 Sat by Pulse 98 Oximetry Medical Decision Making - Lab Data Lab Results 02/20/18 Range/Units 22:45 Urine Opiates Screen Not Detected (NotDetected) Ur Oxycodone Screen Not Detected (NotDetected) Urine Methadone Screen Not Detected (NotDetected) Ur Propoxyphene Screen Not Detected (NotDetected) Ur Barbiturates Screen Not Detected (NotDetected) U Tricyclic Antidepress Not Detected (NotDetected) Ur Phencyclidine Scrn Not Detected (NotDetected) Ur Amphetamines Screen Not Detected (NotDetected) U Methamphetamines Scrn Not Detected (NotDetected) U Benzodiazepines Scrn Not Detected (NotDetected) Urine Cocaine Screen Not Detected (NotDetected) U Marijuana (THC) Screen Not Detected (NotDetected) Disposition Clinical Impression: Anxiety Disposition: HOME SELF-CARE Condition: Fair Instructions: Anxiety (ED) Is patient prescribed a controlled substance at d/c from ED?: No Referrals: Rupali Palencia MD [Primary Care Provider] - 1-2 days
[2018-02-20 23:15] LABS: Amphetamine Screen,Urine Not Detected (NotDetected); Barbiturate Screen,Urine Not Detected (NotDetected); Benzodiazepines Screen,Urine Not Detected (NotDetected); Cocaine Screen,Urine Not Detected (NotDetected); Methadone Screen, Urine Not Detected (NotDetected); Opiate Screen,Urine Not Detected (NotDetected); Oxycodone Screen, Urine Not Detected (NotDetected); Phencyclidine Screen,Urine Not Detected (NotDetected); Tricyclic Antidepressant,Urine Not Detected (NotDetected); Urn Cannabinoid Scrn Not Detected (NotDetected)
[2018-02-21 00:24] VITALS: BP 146/75; PULSE 68; RESP 16; TEMP 98
== END 2018-02-21 00:24 | disposition home or self-care (01) ==
LOC: EC 20:22
DX: F41.9 Anxiety disorder, unspecified (principal); G47.00 Insomnia, unspecified; F32.9 Major depressive disorder, single episode, unspecified; M79.7 Fibromyalgia; E07.9 Disorder of thyroid, unspecified; F17.200 Nicotine dependence, unspecified, uncomplicated; Z79.899 Other long term (current) drug therapy
CPT/HCPCS: 80306; 82075; 93880; 99283

== ENCOUNTER → 2018-02-20 | Outpatient (CLI) | payer MEDICARE, OTHER ==
--- NOTE | 2018-02-21 07:06 | US ---
EXAMINATION TYPE: US carotid duplex BILAT DATE OF EXAM: 02/20/2018 COMPARISON: NONE CLINICAL HISTORY: R42 Dizziness and giddiness. Pt states tremors EXAM MEASUREMENTS: RIGHT: Peak Systolic Velocity (PSV) cm/sec ----- Right CCA: 64.6 ----- Right ICA: 87.0 ----- Right ECA: 57.3 ICA/CCA ratio: 1.3 RIGHT: End Diastole cm/sec ----- Right CCA: 28.9 ----- Right ICA: 27.6 ----- Right ECA: 12.7 LEFT: Peak Systolic Velocity (PSV) cm/sec ----- Left CCA: 80.0 ----- Left ICA: 74.5 ----- Left ECA: 73.0 ICA/CCA ratio: 0.9 LEFT: End Diastole cm/sec ----- Left CCA: 27.1 ----- Left ICA: 31.5 ----- Left ECA: 19.7 VERTEBRALS (direction of flow): Right Vertebral: Antegrade Left Vertebral: Antegrade Rhythm: Normal No significant stenosis seen IMPRESSION: No evidence for hemodynamically significant stenosis. Criteria for Assigning % of Stenosis / Diameter reduction (Estimation based on the indirect measurements of the internal carotid artery velocities (ICA PSV). 1. Normal (no stenosis)=ICA PSV < 125 cm/s: ratio < 2.0: ICA EDV<40 cm/s. 2. Less than 50% stenosis=ICA PSV < 125 cm/s: ratio < 2.0: ICA EDV<40 cm/s. 3. 50 to 69% stenosis=ICA PSV of 125 to 230 cm/s: ration 2.0 ? 4.0: ICA EDV 40-100 cm/s. 4. Greater than 70% stenosis to near occlusion= ICA PSV > 230 cm/s: ratio > 4.0: ICA EDV > 100 cm/s. 5. Near occlusion= ICA PSV velocities may be low or undetectable: variable ratio and ICA EDV. 6. Total occlusion=unable to detect flow.
== END | disposition home or self-care (01) ==
LOC: RADUSWWP 16:04
PROVIDERS: ATTEND Psychiatry & Neurology Neurology
DX: R25.1 Tremor, unspecified (principal); R42 Dizziness and giddiness
CPT/HCPCS: 93880

== ENCOUNTER 2018-04-02 20:28 | Emergency (ER) | payer MEDICARE, OTHER ==
[2018-04-02 20:33] VITALS: RESP 18
--- NOTE | 2018-04-02 21:26 | XR ---
EXAMINATION TYPE: XR foot complete RT DATE OF EXAM: 04/02/2018 COMPARISON: NONE HISTORY: Pain TECHNIQUE: 3 views FINDINGS: Metatarsals are intact. I see no fracture nor dislocation. There are no erosions. IMPRESSION: Negative right foot exam.
--- NOTE | 2018-04-02 21:28 | XR ---
EXAMINATION TYPE: XR ankle complete RT DATE OF EXAM: 04/02/2018 COMPARISON: 11/16/2016 HISTORY: Pain TECHNIQUE: 3 views FINDINGS: There is soft tissue swelling over the lateral malleolus. I see no fracture nor dislocation . Ankle mortise is anatomic. IMPRESSION: Soft tissue swelling. No fracture seen. Soft tissue swelling is new compared to old exam.
[2018-04-02] MEDS ORDERED: HYDROcodone/APAP 5-325MG 1 EACH TAB PO STA (22:05)
[2018-04-02] MEDS ORDERED: ACET/COD 300 MG/30 MG STARTER PACK 6 TAB BTL PO STA (22:33)
--- NOTE | 2018-04-02 22:35 | ED ---
General Adult HPI - General Chief complaint: Extremity Injury, Lower Stated complaint: Foot/ankle injury Time Seen by Provider: 04/02/18 20:36 Source: patient Mode of arrival: wheelchair Limitations: physical limitation - History of Present Illness Initial comments: 57-year-old female with a past medical history of fibromyalgia, thyroid disorder presents to the emergency department for a chief complaint of right foot and ankle pain 4 hours. Patient states she was walking down a sidewalk path earlier today when she actually stepped off a 6 inch step off. Patient states she has been unable to comfortably bear weight on the extremity since that time. She denies previous surgery on this ankle. Patient has not taken anything yet for pain. She states she cannot take Motrin.Patient has no other complaints at this time including shortness of breath, chest pain, abdominal pain, nausea or vomiting, headache, or visual changes. - Related Data Home Medications Medication Instructions Recorded Confirmed diphenhydrAMINE [Benadryl] 50 mg PO BID 11/11/17 02/20/18 FLUoxetine HCL [PROzac] 20 mg PO DAILY 12/06/17 02/20/18 Levothyroxine Sodium [Synthroid] 88 mcg PO DAILY 02/20/18 02/20/18 cloNIDine HCL [Catapres] 0.2 mg PO BID 02/20/18 02/20/18 clonazePAM [KlonoPIN] 0.5 mg PO HS 02/20/18 02/20/18 traZODone HCL 300 mg PO HS 02/20/18 02/20/18 Previous Rx's Medication Instructions Recorded busPIRone HCl [Buspar] 30 mg PO BID #60 tab 01/11/14 Allergies Allergy/AdvReac Type Severity Reaction Status Date / Time No Known Allergies Allergy Verified 04/02/18 20:33 Review of Systems ROS Statement: Those systems with pertinent positive or pertinent negative responses have been documented in the HPI. ROS Other: All systems not noted in ROS Statement are negative. Past Medical History Past Medical History: Fibromyalgia, Neurologic Disorder, Thyroid Disorder Additional Past Medical History / Comment(s): muscle wasting, neuropathy History of Any Multi-Drug Resistant Organisms: None Reported Past Surgical History: Orthopedic Surgery Additional Past Surgical History / Comment(s): Surgey on bilateral knees in 2005. Torn cartilage. Gallstones surgically removed. carpal tunnel right hand surgery Past Anesthesia/Blood Transfusion Reactions: No Reported Reaction Additional Past Anesthesia/Blood Transfusion Reaction / Comment(s): Patient denies. Past Psychological History: Anxiety, Depression, Panic Disorder Smoking Status: Heavy tobacco smoker Past Alcohol Use History: Occasional Past Drug Use History: Marijuana - Past Family History Mother Family Medical History: Cancer Father Family Medical History: Cancer Additional Family Medical History / Comment(s): Mother and father from lung cancer. General Exam Limitations: physical limitation General appearance: alert, in no apparent distress Head exam: Present: atraumatic, normocephalic, normal inspection Eye exam: Present: normal appearance, PERRL, EOMI. Absent: scleral icterus, conjunctival injection, periorbital swelling ENT exam: Present: normal exam, mucous membranes moist Neck exam: Present: normal inspection, full ROM. Absent: tenderness, meningismus, lymphadenopathy Respiratory exam: Present: normal lung sounds bilaterally. Absent: respiratory distress, wheezes, rales, rhonchi, stridor Cardiovascular Exam: Present: regular rate, normal rhythm, normal heart sounds. Absent: systolic murmur, diastolic murmur, rubs, gallop, clicks GI/Abdominal exam: Present: normal bowel sounds Extremities exam: Present: tenderness (Tenderness noted to the arch of the right foot as well as the right lateral malleolus), normal capillary refill ( Capillary refill less than 2 seconds and DP pulse 2+), joint swelling (Patient has moderate edema noted to the right lateral malleolus with contusion. No edema or contusion noted to the bottom of the foot.), other (Sensation intact in the right lower extremity, ). Absent: full ROM (10 dorsiflexion, 20 plantar flexion of the right ankle) Neurological exam: Present: alert, oriented X3, CN II-XII intact Psychiatric exam: Present: normal affect, normal mood Course Vital Signs 04/02/18 20:29 Temperature 98.5 F Pulse Rate 73 Respiratory 18 Rate Blood Pressure 124/79 O2 Sat by Pulse 96 Oximetry Medical Decision Making - Medical Decision Making 57-year-old female presents to the emergency department for a chief complaint of right ankle pain. Patient accidentally stepped off a 6 inch ledge. On exam patient has tenderness on the sole of her right foot as well as tenderness to the right lateral malleolus. There is moderate swelling noted to the right lateral malleolus, no swelling of the sole of the foot. Patient is able to ambulate although it is somewhat painful. Neurovascular intact in the right lower extremity. X-ray of the right ankle shows soft tissue swelling without fracture. X-ray of the right foot is negative for fracture. Recommended OCL splint but patient states she would rather have air splint. Patient was given air splint and crutches. Told to be nonweightbearing until she follows up with orthopedics. Educated on rice therapy and Motrin and Tylenol for pain. She will return here if she has any worsening symptoms. Disposition Clinical Impression: Ankle pain, right, Foot pain, right Disposition: HOME SELF-CARE Condition: Good Instructions: Ankle Sprain (ED), Foot Sprain (ED) Additional Instructions: Please rest ice and elevate the right ankle. Please take Motrin and Tylenol for pain. Please follow-up with orthopedics in one to 2 days. Return to the emergency department if you have any worsening symptoms. Is patient prescribed a controlled substance at d/c from ED?: No Referrals: Rupali Palencia MD [Primary Care Provider] - 1-2 days Peter Dumont MD [STAFF PHYSICIAN] - 1-2 days Time of Disposition: 22:33
[2018-04-02 22:43] VITALS: BP 121/64; PULSE 80; TEMP 97
--- NOTE | 2018-04-02 23:23 | ED ---
General Adult HPI - General Chief complaint: Extremity Injury, Lower Stated complaint: Foot/ankle injury Time Seen by Provider: 04/02/18 20:36 Source: patient Mode of arrival: wheelchair Limitations: physical limitation - Related Data Home Medications Medication Instructions Recorded Confirmed diphenhydrAMINE [Benadryl] 50 mg PO BID 11/11/17 02/20/18 FLUoxetine HCL [PROzac] 20 mg PO DAILY 12/06/17 02/20/18 Levothyroxine Sodium [Synthroid] 88 mcg PO DAILY 02/20/18 02/20/18 cloNIDine HCL [Catapres] 0.2 mg PO BID 02/20/18 02/20/18 clonazePAM [KlonoPIN] 0.5 mg PO HS 02/20/18 02/20/18 traZODone HCL 300 mg PO HS 02/20/18 02/20/18 Previous Rx's Medication Instructions Recorded busPIRone HCl [Buspar] 30 mg PO BID #60 tab 01/11/14 Allergies Allergy/AdvReac Type Severity Reaction Status Date / Time No Known Allergies Allergy Verified 04/02/18 20:33 Review of Systems ROS Statement: Those systems with pertinent positive or pertinent negative responses have been documented in the HPI. ROS Other: All systems not noted in ROS Statement are negative. Past Medical History Past Medical History: Fibromyalgia, Neurologic Disorder, Thyroid Disorder Additional Past Medical History / Comment(s): muscle wasting, neuropathy History of Any Multi-Drug Resistant Organisms: None Reported Past Surgical History: Orthopedic Surgery Additional Past Surgical History / Comment(s): Surgey on bilateral knees in 2005. Torn cartilage. Gallstones surgically removed. carpal tunnel right hand surgery Past Anesthesia/Blood Transfusion Reactions: No Reported Reaction Additional Past Anesthesia/Blood Transfusion Reaction / Comment(s): Patient denies. Past Psychological History: Anxiety, Depression, Panic Disorder Smoking Status: Heavy tobacco smoker Past Alcohol Use History: Occasional Past Drug Use History: Marijuana - Past Family History Mother Family Medical History: Cancer Father Family Medical History: Cancer Additional Family Medical History / Comment(s): Mother and father from lung cancer. General Exam Limitations: physical limitation Course Vital Signs 04/02/18 20:29 Temperature 98.5 F Pulse Rate 73 Respiratory 18 Rate Blood Pressure 124/79 O2 Sat by Pulse 96 Oximetry Disposition Referrals: Rupali Palencia MD [Primary Care Provider] - 1-2 days
== END 2018-04-02 22:42 | disposition home or self-care (01) ==
LOC: EC 20:28
DX: M25.571 Pain in right ankle and joints of right foot (principal); M79.89 Other specified soft tissue disorders; M79.7 Fibromyalgia; E07.9 Disorder of thyroid, unspecified; F32.9 Major depressive disorder, single episode, unspecified; F41.0 Panic disorder [episodic paroxysmal anxiety]; F17.200 Nicotine dependence, unspecified, uncomplicated; Z79.899 Other long term (current) drug therapy
CPT/HCPCS: 73610; 73630; 99283; L4350

== ENCOUNTER 2018-06-02 18:13 | Emergency (ER) | payer MEDICARE, OTHER ==
[2018-06-02 19:16] VITALS: RESP 20; TEMP 99.2
--- NOTE | 2018-06-02 21:39 | ED ---
Anxiety HPI - General Chief Complaint: Anxiety Stated Complaint: Shaky, sweaty Time Seen by Provider: 06/02/18 21:17 Source: patient, family Mode of arrival: ambulatory - History of Present Illness Initial Comments: This patient is a 57-year-old woman who complains of feeling anxious and shaky going back for about a week. The patient states that she had noted this when she went to see her psychiatrist last time which was last week. Since that time she has not been feeling like her usual self. She has been anxious and feeling as if she has a little bit of shaking. She was coming here to be seen about that and then noticed that her blood pressure was high in triage and she states she is feeling more anxious. The patient has further noted that the symptoms seem to be a little worse after she takes her inhaler. She has not noticed improving symptoms. She denies chest pain. MD Complaint: anxiety, other (Feeling shaky) Onset/Timin -: week(s) Place: home Severity: moderate Quality: constant Improves With: nothing Worsens With: medication - Related Data Home Medications: Home Medications Medication Instructions Recorded Confirmed Levothyroxine Sodium [Synthroid] 88 mcg PO DAILY 02/20/18 06/02/18 traZODone HCL 300 mg PO HS 02/20/18 06/02/18 ARIPiprazole [Abilify] 5 mg PO DAILY 06/02/18 06/02/18 ARIPiprazole [Abilify] 10 mg PO HS 06/02/18 06/02/18 Alendronate Sodium [Fosamax] 35 mg PO Q7D 06/02/18 06/02/18 Gabapentin [Neurontin] 100 mg PO BID 06/02/18 06/02/18 Gabapentin [Neurontin] 300 mg PO HS 06/02/18 06/02/18 Multivitamins, Thera [Multivitamin 1 tab PO DAILY 06/02/18 06/02/18 (formulary)] Vortioxetine Hydrobromide 10 mg PO DAILY 06/02/18 06/02/18 [Trintellix] busPIRone HCL 15 mg PO BID 06/02/18 06/02/18 hydrOXYzine PAMOATE [Vistaril] 25 mg PO BID PRN 06/02/18 06/02/18 Allergies/Adverse Reactions: Allergies Allergy/AdvReac Type Severity Reaction Status Date / Time No Known Allergies Allergy Verified 06/02/18 21:32 Review of Systems ROS Statement: Those systems with pertinent positive or pertinent negative responses have been documented in the HPI. ROS Other: All systems not noted in ROS Statement are negative. Constitutional: Denies: fever, chills Eyes: Denies: vision change Respiratory: Denies: cough, dyspnea Cardiovascular: Denies: chest pain, palpitations, orthopnea, syncope Gastrointestinal: Denies: abdominal pain, vomiting, diarrhea Genitourinary: Denies: dysuria Musculoskeletal: Denies: back pain Skin: Denies: rash Neurological: Denies: headache, weakness, numbness, confusion Psychiatric: Reports: anxiety. Denies: suicidal thoughts Past Medical History Past Medical History: Fibromyalgia, Neurologic Disorder, Thyroid Disorder Additional Past Medical History / Comment(s): muscle wasting, neuropathy History of Any Multi-Drug Resistant Organisms: None Reported Past Surgical History: Orthopedic Surgery Additional Past Surgical History / Comment(s): Surgey on bilateral knees in 2005. Torn cartilage. Gallstones surgically removed. carpal tunnel right hand surgery Past Anesthesia/Blood Transfusion Reactions: No Reported Reaction Additional Past Anesthesia/Blood Transfusion Reaction / Comment(s): Patient denies. Past Psychological History: Anxiety, Depression, Panic Disorder Smoking Status: Heavy tobacco smoker Past Alcohol Use History: Occasional Past Drug Use History: Marijuana - Past Family History Mother Family Medical History: Cancer Father Family Medical History: Cancer Additional Family Medical History / Comment(s): Mother and father from lung cancer. General Exam Limitations: no limitations General appearance: alert, in no apparent distress Head exam: Present: atraumatic, normocephalic Eye exam: Present: normal appearance. Absent: scleral icterus, conjunctival injection ENT exam: Present: mucous membranes dry Neck exam: Present: normal inspection Respiratory exam: Present: normal lung sounds bilaterally. Absent: respiratory distress, wheezes, rales, rhonchi, stridor Cardiovascular Exam: Present: regular rate, normal rhythm, normal heart sounds GI/Abdominal exam: Present: soft. Absent: tenderness, guarding, rebound Extremities exam: Present: normal inspection, normal capillary refill. Absent: pedal edema, calf tenderness Back exam: Present: normal inspection. Absent: CVA tenderness (R), CVA tenderness (L) Neurological exam: Present: alert, normal gait Psychiatric exam: Present: anxious. Absent: depressed, agitated, homicidal ideation, suicidal ideation Skin exam: Present: warm, dry, intact, normal color. Absent: rash Course Vital Signs 06/02/18 06/02/18 06/03/18 19:12 22:13 00:29 Temperature 99.2 F Pulse Rate 80 64 Respiratory 20 20 Rate Blood Pressure 180/74 142/86 141/78 O2 Sat by Pulse 94 L 96 Oximetry Medical Decision Making - Medical Decision Making Patient states she was feeling better while waiting and requested to go. Her troponin negative, and given the duration of symptoms second will not be required. Discussed appropriate further care and follow-up related to blood pressure and also related to anxiety. - Lab Data Result diagrams: 06/03/18 00:06 06/03/18 00:06 Lab Results 06/02/18 06/03/18 06/03/18 Range/Units 22:20 00:06 00:06 WBC 6.6 (3.8-10.6) k/uL RBC 4.59 (3.80-5.40) m/uL Hgb 14.6 (11.4-16.0) gm/dL Hct 44.7 (34.0-46.0) % MCV 97.5 (80.0-100.0) fL MCH 31.7 (25.0-35.0) pg MCHC 32.5 (31.0-37.0) g/dL RDW 11.9 (11.5-15.5) % Plt Count 197 (150-450) k/uL Neutrophils % 64 % Lymphocytes % 27 % Monocytes % 6 % Eosinophils % 1 % Basophils % 1 % Neutrophils # 4.2 (1.3-7.7) k/uL Lymphocytes # 1.8 (1.0-4.8) k/uL Monocytes # 0.4 (0-1.0) k/uL Eosinophils # 0.1 (0-0.7) k/uL Basophils # 0.0 (0-0.2) k/uL Sodium 139 (137-145) mmol/L Potassium 4.3 (3.5-5.1) mmol/L Chloride 102 (98-107) mmol/L Carbon Dioxide 30 (22-30) mmol/L Anion Gap 7 mmol/L BUN 13 (7-17) mg/dL Creatinine 0.63 (0.52-1.04) mg/dL Est GFR (CKD-EPI)AfAm >90 (>60 ml/min/1.73 sqM) Est GFR (CKD-EPI)NonAf >90 (>60 ml/min/1.73 sqM) Glucose 97 (74-99) mg/dL Calcium 9.3 (8.4-10.2) mg/dL Troponin I <0.012 (0.000-0.034) ng/mL Disposition Clinical Impression: Acute anxiety Disposition: HOME SELF-CARE Instructions (If sedation given, give patient instructions): Generalized Anxiety Disorder (ED) Is patient prescribed a controlled substance at d/c from ED?: No Referrals: Rupali Palencia MD [Primary Care Provider] - 1-2 days
[2018-06-02] MEDS ORDERED: cloNIDine HCL 0.1 MG TAB PO STA (21:40)
[2018-06-02 22:18] VITALS: PULSE 64
[2018-06-03 00:11] LABS: Basophils % (A) 1 %; Eosinophils # (A) 0.1 k/uL (0-0.7); Eosinophils % (A) 1 %; HCT 44.7 % (34.0-46.0); HGB 14.6 gm/dL (11.4-16.0); Lymphocytes # (A) 1.8 k/uL (1.0-4.8); Lymphocytes % (A) 27 %; MCH 31.7 pg (25.0-35.0); MCHC 32.5 g/dL (31.0-37.0); MCV 97.5 fL (80.0-100.0); Mean Platelet Volume 6.8; Monocytes # (A) 0.4 k/uL (0-1.0); Monocytes % (A) 6 %; Neutrophils # (A) 4.2 k/uL (1.3-7.7); Neutrophils % (A) 64 %; Platelet Count 197 k/uL (150-450); RBC 4.59 m/uL (3.80-5.40); RDW 11.9 % (11.5-15.5); WBC 6.6 k/uL (3.8-10.6)
[2018-06-03 00:15] LABS: Anion Gap 7 mmol/L; Blood Urea Nitrogen 13 mg/dL (7-17); Calcium 9.3 mg/dL (8.4-10.2); Carbon Dioxide 30 mmol/L (22-30); Chloride 102 mmol/L (98-107); Glucose 97 mg/dL (74-99); Potassium 4.3 mmol/L (3.5-5.1); Sodium 139 mmol/L (137-145)
[2018-06-03 00:31] VITALS: BP 141/78
== END 2018-06-03 00:31 | disposition home or self-care (01) ==
LOC: EC 18:13
DX: F41.9 Anxiety disorder, unspecified (principal); R03.0 Elevated blood-pressure reading, without diagnosis of hypertension; E07.9 Disorder of thyroid, unspecified; G62.9 Polyneuropathy, unspecified; M79.7 Fibromyalgia; F32.9 Major depressive disorder, single episode, unspecified; F17.200 Nicotine dependence, unspecified, uncomplicated; Z79.890 Hormone replacement therapy; Z79.899 Other long term (current) drug therapy
CPT/HCPCS: 36415; 80048; 84484; 85025; 99283

== ENCOUNTER 2018-06-05 12:14 | Inpatient (IN) | payer MEDICARE, OTHER ==
--- NOTE | 2018-06-05 12:36 | ED ---
SOB HPI - General Chief Complaint: Shortness of Breath Stated Complaint: lung problems-sent by Time Seen by Provider: 06/05/18 12:31 Source: patient, RN notes reviewed Mode of arrival: wheelchair Limitations: no limitations - History of Present Illness Initial Comments: This is a 57-year-old female who was a smoker about one pack a day who states she has sharp chest pain going up into her shoulders and chest today. She experienced shortness breath with it. She was seen by her doctor sent over here for suspected pneumothorax. She denies any fevers chills or phlegm production no trauma no other modifying factors other than she has of a history of thyroid disease. MD Complaint: shortness of breath, chest pain - Related Data Home Medications Medication Instructions Recorded Confirmed Levothyroxine Sodium [Synthroid] 88 mcg PO DAILY 02/20/18 06/05/18 traZODone HCL 300 mg PO HS 02/20/18 06/05/18 ARIPiprazole [Abilify] 5 mg PO DAILY 06/02/18 06/05/18 ARIPiprazole [Abilify] 10 mg PO HS 06/02/18 06/05/18 Gabapentin [Neurontin] 100 mg PO BID 06/02/18 06/05/18 Gabapentin [Neurontin] 300 mg PO HS 06/02/18 06/05/18 Multivitamins, Thera [Multivitamin 1 tab PO DAILY 06/02/18 06/05/18 (formulary)] Vortioxetine Hydrobromide 10 mg PO DAILY 06/02/18 06/05/18 [Trintellix] busPIRone HCL 15 mg PO BID 06/02/18 06/05/18 hydrOXYzine PAMOATE [Vistaril] 25 mg PO BID PRN 06/02/18 06/05/18 Allergies Allergy/AdvReac Type Severity Reaction Status Date / Time No Known Allergies Allergy Verified 06/05/18 12:29 Review of Systems ROS Statement: Those systems with pertinent positive or pertinent negative responses have been documented in the HPI. ROS Other: All systems not noted in ROS Statement are negative. Past Medical History Past Medical History: Fibromyalgia, Neurologic Disorder, Thyroid Disorder Additional Past Medical History / Comment(s): muscle wasting, neuropathy History of Any Multi-Drug Resistant Organisms: None Reported Past Surgical History: Orthopedic Surgery Additional Past Surgical History / Comment(s): Surgey on bilateral knees in 2005. Torn cartilage. Gallstones surgically removed. carpal tunnel right hand surgery Past Anesthesia/Blood Transfusion Reactions: No Reported Reaction Additional Past Anesthesia/Blood Transfusion Reaction / Comment(s): Patient denies. Past Psychological History: Anxiety, Depression, Panic Disorder Smoking Status: Heavy tobacco smoker Past Alcohol Use History: Occasional Past Drug Use History: Marijuana - Past Family History Mother Family Medical History: Cancer Father Family Medical History: Cancer Additional Family Medical History / Comment(s): Mother and father from lung cancer. General Exam - General Exam Comments Initial Comments: This is a well-developed asthenic appearing female who is awake alert oriented 3 Limitations: no limitations General appearance: alert, anxious, in distress Head exam: Present: atraumatic, normocephalic, normal inspection Eye exam: Present: normal appearance, PERRL, EOMI. Absent: scleral icterus, conjunctival injection, periorbital swelling ENT exam: Present: normal exam, mucous membranes moist Neck exam: Present: normal inspection. Absent: tenderness, meningismus, lymphadenopathy Respiratory exam: Present: decreased breath sounds (Especially on the right). Absent: respiratory distress, wheezes, rales, rhonchi, stridor Cardiovascular Exam: Present: regular rate, normal rhythm, normal heart sounds. Absent: systolic murmur, diastolic murmur, rubs, gallop, clicks GI/Abdominal exam: Present: soft, normal bowel sounds. Absent: distended, tenderness, guarding, rebound, rigid Extremities exam: Present: normal inspection, full ROM, normal capillary refill. Absent: tenderness, pedal edema, joint swelling, calf tenderness Back exam: Present: normal inspection Neurological exam: Present: alert, oriented X3, CN II-XII intact Psychiatric exam: Present: normal affect, normal mood Skin exam: Present: warm, dry, intact, normal color. Absent: rash Course Vital Signs 06/05/18 06/05/18 12:30 13:51 Temperature 98.4 F Pulse Rate 91 80 Respiratory 20 16 Rate Blood Pressure 154/88 139/84 O2 Sat by Pulse 97 96 Oximetry - Reevaluation(s) Reevaluation #1: 06/05/18 15:07 The PA x-ray was done immediately following placement of the tube prior to suction patient did have increased aeration and did feel improved after the tube placement it did show minimal improvement in the pneumothorax approximately 3 mL of air was aspirated with increased air sounds. Procedures - Chest Tube Insertion Consent Obtained: emergent situation Side of Procedure: right Indication: Pneumothorax Placed on monitor/pulse oximetry: Yes Site Prep: Chloroprep Local Anesthesia: Lidocaine 1% Amount (mLs): 10 Insertion Site: Other (Second intercostal space right anterior chest wall) Scalpel: #[address]: No (Thoro-vent) Attached to Suction: Yes (Suction approximately 300 mL of air) Type of Suction: Other (Syringe) Repeat X-ray Results: Other (Improvement though the x-ray was on before suction. ) Patient Tolerated Procedure: well - Smoking Cessation Time Spent Discussing Smoking Cessation w/Patient (Minutes): 3 Patient Acknowledges Need for Cessation: Yes Medical Decision Making - Medical Decision Making I did discuss case with Dr. Mason as well as with Dr. Dent - Lab Data Result diagrams: 06/05/18 12:35 06/05/18 12:35 Lab Results 06/05/18 06/05/18 06/05/18 Range/Units 12:35 12:35 12:35 WBC 10.1 (3.8-10.6) k/uL RBC 4.64 (3.80-5.40) m/uL Hgb 15.1 (11.4-16.0) gm/dL Hct 45.5 (34.0-46.0) % MCV 98.2 (80.0-100.0) fL MCH 32.6 (25.0-35.0) pg MCHC 33.2 (31.0-37.0) g/dL RDW 11.9 (11.5-15.5) % Plt Count 210 (150-450) k/uL Neutrophils % 78 % Lymphocytes % 16 % Monocytes % 5 % Eosinophils % 1 % Basophils % 0 % Neutrophils # 7.9 H (1.3-7.7) k/uL Lymphocytes # 1.6 (1.0-4.8) k/uL Monocytes # 0.5 (0-1.0) k/uL Eosinophils # 0.1 (0-0.7) k/uL Basophils # 0.0 (0-0.2) k/uL PT (9.0-12.0) sec INR (<1.2) APTT (22.0-30.0) sec Sodium 138 (137-145) mmol/L Potassium 4.3 (3.5-5.1) mmol/L Chloride 101 (98-107) mmol/L Carbon Dioxide 31 H (22-30) mmol/L Anion Gap 6 mmol/L BUN 13 (7-17) mg/dL Creatinine 0.72 (0.52-1.04) mg/dL Est GFR (CKD-EPI)AfAm >90 (>60 ml/min/1.73 sqM) Est GFR (CKD-EPI)NonAf >90 (>60 ml/min/1.73 sqM) Glucose 119 H (74-99) mg/dL Calcium 9.9 (8.4-10.2) mg/dL Magnesium 1.7 (1.6-2.3) mg/dL Total Bilirubin 0.9 (0.2-1.3) mg/dL AST 32 (14-36) U/L ALT 30 (9-52) U/L Alkaline Phosphatase 48 (38-126) U/L Total Creatine Kinase 128 (30-135) U/L CK-MB (CK-2) 1.5 (0.0-2.4) ng/mL CK-MB (CK-2) Rel Index 1.2 Troponin I <0.012 (0.000-0.034) ng/mL Total Protein 7.1 (6.3-8.2) g/dL Albumin 4.4 (3.5-5.0) g/dL 06/05/18 Range/Units 12:35 WBC (3.8-10.6) k/uL RBC (3.80-5.40) m/uL Hgb (11.4-16.0) gm/dL Hct (34.0-46.0) % MCV (80.0-100.0) fL MCH (25.0-35.0) pg MCHC (31.0-37.0) g/dL RDW (11.5-15.5) % Plt Count (150-450) k/uL Neutrophils % % Lymphocytes % % Monocytes % % Eosinophils % % Basophils % % Neutrophils # (1.3-7.7) k/uL Lymphocytes # (1.0-4.8) k/uL Monocytes # (0-1.0) k/uL Eosinophils # (0-0.7) k/uL Basophils # (0-0.2) k/uL PT 10.1 (9.0-12.0) sec INR 0.9 (<1.2) APTT 25.4 (22.0-30.0) sec Sodium (137-145) mmol/L Potassium (3.5-5.1) mmol/L Chloride (98-107) mmol/L Carbon Dioxide (22-30) mmol/L Anion Gap mmol/L BUN (7-17) mg/dL Creatinine (0.52-1.04) mg/dL Est GFR (CKD-EPI)AfAm (>60 ml/min/1.73 sqM) Est GFR (CKD-EPI)NonAf (>60 ml/min/1.73 sqM) Glucose (74-99) mg/dL Calcium (8.4-10.2) mg/dL Magnesium (1.6-2.3) mg/dL Total Bilirubin (0.2-1.3) mg/dL AST (14-36) U/L ALT (9-52) U/L Alkaline Phosphatase (38-126) U/L Total Creatine Kinase (30-135) U/L CK-MB (CK-2) (0.0-2.4) ng/mL CK-MB (CK-2) Rel Index Troponin I (0.000-0.034) ng/mL Total Protein (6.3-8.2) g/dL Albumin (3.5-5.0) g/dL - EKG Data -: EKG Interpreted by Mo EKG shows normal: sinus rhythm (Normal sinus rhythm of 84. Interval 148 QRS duration 74 QT since QTC 366/[address]-T wave changes) - Radiology Data Radiology results: report reviewed (Did review the imaging and reports patient does demonstrate approximately 50% pneumothorax on the right.), image reviewed Critical Care Time Critical Care Time: Yes Critical Care Time: 34 minutes of critical care time which includes initial presentation with history physical labs x-rays several reevaluation the patient. This does not include the time he placed the Thoro-vent. This also does include discussion with the main physician Dr. Lofton as well as Dr. Dent. This is also include order writing and documentation of the above Disposition Clinical Impression: Spontaneous pneumothorax, Chest pain, Smoking Disposition: ADMITTED IP TO THIS HOSP Condition: Stable Referrals: Rupali Palencia MD [Primary Care Provider] - 1-2 days
[2018-06-05] MEDS ORDERED: LIDOCAINE 1% INJ 10MG/ML (20 ML MDV) SQ ONE (12:49)
[2018-06-05] MEDS ORDERED: HYDROmorphone 0.5 MG/0.5 ML SYRINGE IVP STA (12:53)
--- NOTE | 2018-06-05 12:54 | XR ---
EXAMINATION TYPE: XR chest 1V portable DATE OF EXAM: 06/05/2018 HISTORY: Shortness of breath. COMPARISON: None. TECHNIQUE: Single view of the chest is submitted. FINDINGS: There is a large right-sided pneumothorax estimated at 50%. There is no evidence for focal infiltrate. The heart is stable. Hilar and mediastinal structures are within normal limits. Degenerative changes are seen of the dorsal spine. IMPRESSION: 1. There is a large right-sided pneumothorax estimated at 50%. ER physician was notified at the time of exam completion.
[2018-06-05 12:55] LABS: Basophils % (A) 0 %; Eosinophils # (A) 0.1 k/uL (0-0.7); Eosinophils % (A) 1 %; HCT 45.5 % (34.0-46.0); HGB 15.1 gm/dL (11.4-16.0); Lymphocytes # (A) 1.6 k/uL (1.0-4.8); Lymphocytes % (A) 16 %; MCH 32.6 pg (25.0-35.0); MCHC 33.2 g/dL (31.0-37.0); MCV 98.2 fL (80.0-100.0); Mean Platelet Volume 6.6; Monocytes # (A) 0.5 k/uL (0-1.0); Monocytes % (A) 5 %; Neutrophils # (A) 7.9 k/uL (1.3-7.7); Neutrophils % (A) 78 %; Platelet Count 210 k/uL (150-450); RBC 4.64 m/uL (3.80-5.40); RDW 11.9 % (11.5-15.5); WBC 10.1 k/uL (3.8-10.6)
[2018-06-05 13:01] LABS: INR 0.9 (<1.2); Partial Thromboplastin Time 25.4 sec (22.0-30.0); Prothrombin Time 10.1 sec (9.0-12.0)
[2018-06-05 13:06] LABS: ALT 30 U/L (9-52); AST 32 U/L (14-36); Albumin 4.4 g/dL (3.5-5.0); Alkaline Phosphatase 48 U/L (38-126); Anion Gap 6 mmol/L; Blood Urea Nitrogen 13 mg/dL (7-17); Calcium 9.9 mg/dL (8.4-10.2); Carbon Dioxide 31 mmol/L (22-30); Chloride 101 mmol/L (98-107); Glucose 119 mg/dL (74-99); Magnesium 1.7 mg/dL (1.6-2.3); Potassium 4.3 mmol/L (3.5-5.1); Sodium 138 mmol/L (137-145); Total Bilirubin 0.9 mg/dL (0.2-1.3); Total Protein 7.1 g/dL (6.3-8.2)
[2018-06-05 13:24] LABS: Creatine Kinase 128 U/L (30-135)
[2018-06-05 13:35] LABS: Creatine Kinase MB 1.5 ng/mL (0.0-2.4); Troponin I <0.012 ng/mL (0.000-0.034)
--- NOTE | 2018-06-05 13:43 | XR ---
EXAMINATION TYPE: XR chest 1V portable DATE OF EXAM: 06/05/2018 HISTORY: Pneumothorax follow-up COMPARISON: None. TECHNIQUE: Single view of the chest is submitted. FINDINGS: Right-sided pleural catheter is noted. No substantial diminution in right-sided large pneumothorax. There is no evidence for focal infiltrate. The heart is stable. Hilar and mediastinal structures are within normal limits. Degenerative changes are seen of the dorsal spine. IMPRESSION: 1. Right-sided pleural catheter is noted. No substantial diminution in right-sided large pneumothora x.
[2018-06-05] MEDS ORDERED: NALOXONE 0.4 MG/ML 1 ML VIAL IV PRN (15:13)
[2018-06-05] MEDS ORDERED: hydrOXYzine PAMOATE 25 MG CAP PO PRN (15:18)
[2018-06-05] MEDS ORDERED: NICOTINE 14MG/24HR PATCH TRANSDERM STA (15:18)
[2018-06-05] MEDS ORDERED: KETOROLAC 30 MG/ML 1 ML VIAL IVP STA (16:24)
--- NOTE | 2018-06-05 17:50 | P.CNPUL ---
History of Present Illness Consult date: 06/05/18 Reason for consult: pneumothorax History of present illness: 57-year-old here patient, a chronic smoker presented to [facility] because of chest pain and shortness of breath. She was found to have a spontaneous pneumothorax on the right side identified by chest x-ray that was done based on the chest x-ray that was done in the emergency department. The right-sided pneumothorax was estimated to be around 50%. No hemodynamic instability. The Thoravent was inserted. There was partial expansion and the patient was admitted to the medical floor. Currently she is hemodynamically stable. She is free of any chest pain. Shortness of breath has subsided. I saw the patient a medical floor. I connected the thoravent to pleuroVAC and wall suction. No previous history of pneumothoraces. No trauma. She is a chronic smoker in she probably has underlying COPD. Review of Systems Constitutional: Denies chills, Denies fever Eyes: denies as per HPI, denies blurred vision, denies bulging eye, denies decreased vision, denies diplopia, denies discharge, denies dry eye, denies irritation, denies itching, denies pain, denies photophobia, denies loss of peripheral vision, denies loss of vision, denies tunnel vision/blind spots Ears: deny: decreased hearing, ear discharge, earache, tinnitus Ears, nose, mouth and throat: Denies headache, Denies sore throat Cardiovascular: Reports chest pain, Reports dyspnea on exertion Respiratory: Reports dyspnea Gastrointestinal: Denies abdominal pain, Denies diarrhea, Denies nausea, Denies vomiting Genitourinary: Denies dysuria, Denies hematuria Menstruation: Reports as per HPI Musculoskeletal: Reports as per HPI Musculoskeletal: absent: ankle pain, ankle stiffness, ankle swelling, as per HPI , elbow pain, elbow stiffness, elbow swelling, foot pain, foot stiffness, foot swelling, hand pain, hand stiffness, hand swelling, hip pain, hip stiffness, hip swelling, knee pain, knee stiffness, knee swelling, shoulder pain, shoulder stiffness, shoulder swelling, wrist pain, wrist stiffness, wrist swelling Integumentary: Denies pruritus, Denies rash Neurological: Denies numbness, Denies weakness Psychiatric: Reports anxiety, Reports depression, Reports sleep disturbances Endocrine: Denies fatigue, Denies weight change Hematologic/Lymphatic: Reports as per HPI Allergic/Immunologic: Reports as per HPI Past Medical History Past Medical History: Fibromyalgia, Neurologic Disorder, Thyroid Disorder Additional Past Medical History / Comment(s): COPD, anxiety, depression, hypothyroidism, peripheral neuropathy, fibromyalgia, chronic back pain, borderline personality disorder, chronic Insomnia, Hypothyroidism History of Any Multi-Drug Resistant Organisms: None Reported Past Surgical History: Orthopedic Surgery Additional Past Surgical History / Comment(s): Surgey on bilateral knees in 2005. Torn cartilage. Gallstones surgically removed. carpal tunnel right hand surgery Past Anesthesia/Blood Transfusion Reactions: No Reported Reaction Additional Past Anesthesia/Blood Transfusion Reaction / Comment(s): Patient denies. Past Psychological History: Anxiety, Depression, Panic Disorder Additional Psychological History / Comment(s): Bordeline Personality Disorder, Body Dysmorphia. Patient reports she is open with [facility] Dr. Rosenthal is her psychiatrist and Alina Urban is her therapist. Patient has history of 2 MHIP addmission. Most recent was at [facility] for suicide attempt. Smoking Status: Current every day smoker Past Alcohol Use History: Occasional Additional Past Alcohol Use History / Comment(s): pt denies alcohol use. Past Drug Use History: Marijuana - Past Family History Mother Family Medical History: Cancer Father Family Medical History: Cancer Additional Family Medical History / Comment(s): Mother and father from lung cancer. Medications and Allergies Home Medications Medication Instructions Recorded Confirmed Type Levothyroxine Sodium [Synthroid] 88 mcg PO DAILY 02/20/18 06/05/18 History traZODone HCL 300 mg PO HS 02/20/18 06/05/18 History ARIPiprazole [Abilify] 5 mg PO DAILY 06/02/18 06/05/18 History ARIPiprazole [Abilify] 10 mg PO HS 06/02/18 06/05/18 History Gabapentin [Neurontin] 100 mg PO BID 06/02/18 06/05/18 History Gabapentin [Neurontin] 300 mg PO HS 06/02/18 06/05/18 History Multivitamins, Thera [Multivitamin 1 tab PO DAILY 06/02/18 06/05/18 History (formulary)] Vortioxetine Hydrobromide 10 mg PO DAILY 06/02/18 06/05/18 History [Trintellix] busPIRone HCL 15 mg PO BID 06/02/18 06/05/18 History hydrOXYzine PAMOATE [Vistaril] 25 mg PO BID PRN 06/02/18 06/05/18 History Allergies Allergy/AdvReac Type Severity Reaction Status Date / Time No Known Allergies Allergy Verified 06/05/18 12:29 Physical Exam Vitals: Vital Signs Temp Pulse Pulse Resp BP BP Pulse Ox 06/05/18 16:55 99.2 F 66 18 126/59 100 06/05/18 16:30 71 14 121/71 99 06/05/18 16:00 68 21 130/79 95 06/05/18 15:30 74 17 126/63 95 06/05/18 15:00 84 20 139/84 95 06/05/18 14:30 72 24 136/91 94 L 06/05/18 14:00 74 16 139/84 95 06/05/18 13:51 80 16 139/84 96 06/05/18 12:30 98.4 F 91 20 154/88 97 Intake and Output 06/05/18 06/05/18 06/05/18 06:59 14:59 22:59 Other: Weight 43.545 kg Thin and frail nonacute distress, the patient looks quite cachectic and very thin Head exam was generally normal. There was no scleral icterus or corneal arcus. Mucous membranes were moist. Neck was supple and without jugular venous distension, thyromegaly, or carotid bruits. Carotids were easily palpable bilaterally. There was no adenopathy. Lungs sounds revealed diminished breath on the right compared to left. At Thoravent is present over the anterior chest on the right. Cardiac exam revealed the PMI to be normally situated and sized. The rhythm was regular and no extrasystoles were noted during several minutes of auscultation. The first and second heart sounds were normal and physiologic splitting of the second heart sound was noted. There were no murmurs, rubs, clicks, or gallops. Abdominal exam revealed normal bowel sounds. The abdomen was soft, non-tender, and without masses, organomegaly, or appreciable enlargement of the abdominal aorta. Examination of the extremities revealed easily palpable radial, femoral and pedal pulses. There was no cyanosis, clubbing or edema. Examination of the skin revealed no evidence of significant rashes, suspicious appearing nevi or other concerning lesions. Results - Laboratory Findings CBC and BMP: 06/05/18 12:35 06/05/18 12:35 PT/INR, D-dimer PT 10.1 sec (9.0-12.0) 06/05/18 12:35 INR 0.9 (<1.2) 06/05/18 12:35 Abnormal lab findings: Abnormal Labs 06/05/18 06/05/18 12:35 12:35 Neutrophils # 7.9 H Carbon Dioxide 31 H Glucose 119 H - Diagnostic Findings Chest x-ray: image reviewed Assessment and Plan Plan: Assessment 1 spontaneous pneumothorax, likely secondary to underlying COPD. The patient to 50% pneumothorax on the right and the patient had a Thoravent inserted with partial reexpansion 2 smoker 3 chronic insomnia 4 fibromyalgia 5 chronic anxiety 6 depression 7 borderline percent disorder 8 hypothyroidism 9 peripheral neuropathy Plan Daily chest x-rays. Incentive spirometer. We'll attention to Thoravent to a Pleur-evac. The patient will be counseled for smoking cessation. We'll continue to follow. Resume outpatient medications. Provide patient incentive spirometer.
[2018-06-05] MEDS: HYDROmorphone 1 MG/ML 1 ML SYRINGE IVP PRN (17:52)
--- NOTE | 2018-06-05 17:58 | P.HPIM ---
History of Present Illness 57-year-old the female with history of smoking which she is trying to cut it down With comments of shortness of breath cough patient presented with similar symptoms to PCPs office where she had a chest x-ray which showed pneumothorax patient was sent in here patient is found as part in his pneumothorax occupying up at least 50% of the lung for which patient received 4 underwent and the patient is feeling better patient was having severe a pleuritic chest pain which improved but patient is still complaining of some shoulder pain. And shortness of breath improved cough improved. Patient denied any fever chills. Review of Systems REVIEW OF SYSTEMS: CONSTITUTIONAL: No fever, no malaise, no fatigue. HEENT: No recent visual problems or hearing problems. Denied any sore throat. CARDIOVASCULAR: No orthopnea, PND, no palpitations, no syncope. PULMONARY: no hemoptysis. GASTROINTESTINAL: No diarrhea, no nausea, no vomiting, no abdominal pain. NEUROLOGICAL: No headaches, no weakness, no numbness. HEMATOLOGICAL: Denies any bleeding or petechiae. GENITOURINARY: Denies any burning micturition, frequency, or urgency. MUSCULOSKELETAL/RHEUMATOLOGICAL: Denies any joint pain, swelling, or any muscle pain. ENDOCRINE: Denies any polyuria or polydipsia. The rest of the 14-point review of systems is negative. Past Medical History Past Medical History: Fibromyalgia, Neurologic Disorder, Thyroid Disorder Additional Past Medical History / Comment(s): COPD, anxiety, depression, hypothyroidism, peripheral neuropathy, fibromyalgia, chronic back pain, borderline personality disorder, chronic Insomnia, Hypothyroidism History of Any Multi-Drug Resistant Organisms: None Reported Past Surgical History: Orthopedic Surgery Additional Past Surgical History / Comment(s): Surgey on bilateral knees in 2005. Torn cartilage. Gallstones surgically removed. carpal tunnel right hand surgery Past Anesthesia/Blood Transfusion Reactions: No Reported Reaction Additional Past Anesthesia/Blood Transfusion Reaction / Comment(s): Patient denies. Past Psychological History: Anxiety, Depression, Panic Disorder Additional Psychological History / Comment(s): Bordeline Personality Disorder, Body Dysmorphia. Patient reports she is open with [facility]. Dr. Rosenthal is her psychiatrist and Alina Urban is her therapist. Patient has history of 2 MHIP addmission. Most recent was at [facility] for suicide attempt. Smoking Status: Current every day smoker Past Alcohol Use History: Occasional Additional Past Alcohol Use History / Comment(s): pt denies alcohol use. Past Drug Use History: Marijuana - Past Family History Mother Family Medical History: Cancer Father Family Medical History: Cancer Additional Family Medical History / Comment(s): Mother and father from lung cancer. Medications and Allergies Home Medications Medication Instructions Recorded Confirmed Type Levothyroxine Sodium [Synthroid] 88 mcg PO DAILY 02/20/18 06/05/18 History traZODone HCL 300 mg PO HS 02/20/18 06/05/18 History ARIPiprazole [Abilify] 5 mg PO DAILY 06/02/18 06/05/18 History ARIPiprazole [Abilify] 10 mg PO HS 06/02/18 06/05/18 History Gabapentin [Neurontin] 100 mg PO BID 06/02/18 06/05/18 History Gabapentin [Neurontin] 300 mg PO HS 06/02/18 06/05/18 History Multivitamins, Thera [Multivitamin 1 tab PO DAILY 06/02/18 06/05/18 History (formulary)] Vortioxetine Hydrobromide 10 mg PO DAILY 06/02/18 06/05/18 History [Trintellix] busPIRone HCL 15 mg PO BID 06/02/18 06/05/18 History hydrOXYzine PAMOATE [Vistaril] 25 mg PO BID PRN 06/02/18 06/05/18 History Allergies Allergy/AdvReac Type Severity Reaction Status Date / Time No Known Allergies Allergy Verified 06/05/18 12:29 Physical Exam Vitals: Vital Signs Temp Pulse Pulse Resp BP BP Pulse Ox 06/05/18 16:55 99.2 F 66 18 126/59 100 06/05/18 16:30 71 14 121/71 99 06/05/18 16:00 68 21 130/79 95 06/05/18 15:30 74 17 126/63 95 06/05/18 15:00 84 20 139/84 95 06/05/18 14:30 72 24 136/91 94 L 06/05/18 14:00 74 16 139/84 95 06/05/18 13:51 80 16 139/84 96 06/05/18 12:30 98.4 F 91 20 154/88 97 Intake and Output 06/05/18 06/05/18 06/05/18 06:59 14:59 22:59 Other: Weight 43.545 kg PHYSICAL EXAMINATION: GENERAL: The patient is alert and oriented x3, not in any acute distress. Thin built female HEENT: Pupils are round and equally reacting to light. EOMI. No scleral icterus. No conjunctival pallor. Normocephalic, atraumatic. No pharyngeal erythema. No thyromegaly. CARDIOVASCULAR: S1 and S2 present. No murmurs, rubs, or gallops. PULMONARY: Chest is clear to auscultation, no wheezing or crackles. ABDOMEN: Soft, nontender, nondistended, normoactive bowel sounds. No palpable organomegaly. MUSCULOSKELETAL: No joint swelling or deformity. EXTREMITIES: No cyanosis, clubbing, or pedal edema. NEUROLOGICAL: Gross neurological examination did not reveal any focal deficits. SKIN: No rashes. Results CBC & Chem 7: 06/05/18 12:35 06/05/18 12:35 Labs: Abnormal Lab Results - Last 24 Hours (Table) 06/05/18 06/05/18 Range/Units 12:35 12:35 Neutrophils # 7.9 H (1.3-7.7) k/uL Carbon Dioxide 31 H (22-30) mmol/L Glucose 119 H (74-99) mg/dL Thrombosis Risk Factor Assmnt - Choose All That Apply Any of the Below Risk Factors Present?: Yes Each Factor Represents 1 point: Age 41-60 years Thrombosis Risk Factor Assessment Total Risk Factor Score: 1 Thrombosis Risk Factor Assessment Level: Low Risk Assessment and Plan Plan: -Spontaneous pneumothorax probably secondary to ruptured bullae and underlying COPD admitted physical edema: Patient had a thorough vent that was placed with the significant expansion discernment will be connected to vacuum suction. Patient will be monitored repeat chest x-ray tomorrow we will use Toradol for pain and GI prophylaxis. -Nicotine abuse with possibility of undiagnosed COPD not in acute exacerbation -Fibromyalgia -Depression and anxiety disorder -Hypothyroidism -Peripheral neuropathy etiology is unknown.
[2018-06-05] MEDS: SODIUM CHLORIDE 0.9% 1,000 ML IV SCH (18:12)
[2018-06-05] MEDS: busPIRone HCl 10 MG TAB PO SCH (19:55)
[2018-06-05] MEDS: FAMOTIDINE 20 MG TAB PO SCH (19:55)
[2018-06-05] MEDS: traZODone HCL 100 MG TAB PO SCH (19:55)
[2018-06-05] MEDS: GABAPENTIN 300 MG CAP PO SCH (19:55)
[2018-06-05] MEDS: ARIPiprazole 10 MG TAB PO SCH (20:38)
[2018-06-06] MEDS: HYDROmorphone 1 MG/ML 1 ML SYRINGE IVP PRN ×2 (03:11→22:10)
[2018-06-06] MEDS: LEVOTHYROXINE 88 MCG TAB PO SCH (06:06)
--- NOTE | 2018-06-06 07:47 | XR ---
EXAMINATION TYPE: XR chest 2V DATE OF EXAM: 06/06/2018 COMPARISON: 06/05/2018 HISTORY: Pneumothorax. TECHNIQUE: Frontal and lateral views of the chest are obtained. FINDINGS: There is decrease in size of the right pneumothorax in comparison to the prior of 06/05/2018 with small apical pneumothorax remaining estimated approximately 10% with maximal apical pleural sep aration of 1.8 cm. Right-sided Pleur-evac is noted. Right axillary subcutaneous emphysema is seen. Re mainder the lungs are clear. Mediastinum is elongated however remains midline. IMPRESSION: Improved degree of the right-sided pneumothorax now estimated at approximately 10% with new right axillary subcutaneous edema.
[2018-06-06] MEDS: FAMOTIDINE 20 MG TAB PO SCH ×2 (09:07→20:43)
[2018-06-06] MEDS: GABAPENTIN 100 MG CAP PO SCH ×2 (09:07→17:31)
[2018-06-06] MEDS: busPIRone HCl 10 MG TAB PO SCH ×2 (09:07→20:45)
[2018-06-06] MEDS: ARIPiprazole 5 MG TAB PO SCH (09:07)
[2018-06-06] MEDS: VORTIOXETINE HYDROBROMIDE 10 MG TABLET PO SCH (09:08)
[2018-06-06] MEDS ORDERED: ACETAMINOPHEN TAB 500 MG TAB PO PRN (10:12)
--- NOTE | 2018-06-06 10:49 | P.PN ---
Subjective 57-year-old the female admitted for spottiness pneumothorax in the right side repeat chest x-ray showed resolving pneumothorax. Patient is presently contacted to suction and has a prominent in place patient has mild subcutaneous emphysema as well as asked x-ray as well as clinically mild crepitus patient is comparing of pain in the right shoulder area. Constitutional: Denied any fatigue denied any fever. Cardio vascular: denied any chest pain, palpitations Gastrointestinal denied any nausea vomiting Pulmonary: Denied any shortness of breath cough Neurologic denied any new focal deficits All inpatient medications were reviewed and appropriate changes in these medications as dictated in the interval history and assessment and plan. Objective - Vital Signs Vital signs: Vital Signs Temp 98 F 06/06/18 09:18 Pulse 69 06/06/18 09:18 Resp 15 06/06/18 09:18 BP 109/56 06/06/18 09:18 Pulse Ox 93 L 06/06/18 09:18 Intake & Output 06/05/18 06/06/18 06/06/18 18:59 06:59 18:59 Intake Total 240 240 Output Total 400 Balance 240 -160 Weight 43.545 kg 41 kg Intake: Oral 240 240 Output: Urine 400 Other: Voiding Method Toilet # Voids 1 - Exam PHYSICAL EXAMINATION: GENERAL: The patient is alert and oriented x3, not in any acute distress. Thin built female HEENT: Pupils are round and equally reacting to light. EOMI. No scleral icterus. No conjunctival pallor. Normocephalic, atraumatic. No pharyngeal erythema. No thyromegaly. CARDIOVASCULAR: S1 and S2 present. No murmurs, rubs, or gallops. PULMONARY: Chest is clear to auscultation, no wheezing or crackles. ABDOMEN: Soft, nontender, nondistended, normoactive bowel sounds. No palpable organomegaly. MUSCULOSKELETAL: No joint swelling or deformity. EXTREMITIES: No cyanosis, clubbing, or pedal edema. NEUROLOGICAL: Gross neurological examination did not reveal any focal deficits. SKIN: No rashes. - Labs CBC & Chem 7: 06/05/18 12:35 06/05/18 12:35 Labs: Abnormal Lab Results - Last 24 Hours (Table) 06/05/18 06/05/18 Range/Units 12:35 12:35 Neutrophils # 7.9 H (1.3-7.7) k/uL Carbon Dioxide 31 H (22-30) mmol/L Glucose 119 H (74-99) mg/dL Assessment and Plan Plan: -Spontaneous pneumothorax probably secondary to ruptured bullae and underlying COPD and emphysema: Patient had a thorough vent that was placed with the significant expansion discernment will be connected to vacuum suction. Repeat chest x-ray showed improvement in pneumothorax patient will be continued on Toradol along with GI prophylaxis -Nicotine abuse with possibility of undiagnosed COPD not in acute exacerbation -Fibromyalgia -Depression and anxiety disorder -Hypothyroidism -Peripheral neuropathy etiology is unknown.
[2018-06-06 11:34] VITALS: BMI 16.5
[2018-06-06] MEDS: NICOTINE 14MG/24HR PATCH TRANSDERM SCH (11:59)
[2018-06-06] MEDS: MULTIVITAMINS, THERA 1 EACH TAB PO SCH (12:00)
[2018-06-06] MEDS: SODIUM CHLORIDE 0.9% 1,000 ML IV SCH (14:34)
--- NOTE | 2018-06-06 16:22 | XR ---
EXAMINATION TYPE: XR chest 1V DATE OF EXAM: 06/06/2018 CLINICAL HISTORY: Chest tube progress study, suction discontinued for one hour. TECHNIQUE: Single AP portable upright view of the chest is obtained. COMPARISON: Chest x-ray from earlier today FINDINGS: For vent catheter overlies lateral right upper chest. There is increase in size of right-s ided pneumothorax after suction discontinued along right apical and lateral margin of the lung. Adjac ent subcutaneous emphysema is redemonstrated. Perhaps slight mediastinal shift to the right is noted. No new focal airspace opacity is present. Left lung remains clear. Cholecystectomy clips are redemon strated. Cardiac silhouette size is within normal limits. IMPRESSION: Small to moderate size right pneumothorax estimated 15-20% increased in size after suctio n is discontinued on Thoravent.
--- NOTE | 2018-06-06 16:49 | P.PN ---
Subjective Progress Note Date: 06/06/18 Principal diagnosis: spontaneous pneumothorax, right side, status post Thoravent insertion 57-year-old here patient, a chronic smoker presented to [facility] because of chest pain and shortness of breath. She was found to have a spontaneous pneumothorax on the right side identified by chest x-ray that was done based on the chest x-ray that was done in the emergency department. The right-sided pneumothorax was estimated to be around 50%. No hemodynamic instability. The Thoravent was inserted. There was partial expansion and the patient was admitted to the medical floor. Currently she is hemodynamically stable. She is free of any chest pain. Shortness of breath has subsided. I saw the patient a medical floor. I connected the thoravent to pleuroVAC and wall suction. No previous history of pneumothoraces. No trauma. She is a chronic smoker in she probably has underlying COPD. On 06/06/2018 patient seen in follow-up. right-sided Thora-Vent, today's chest x -ray showed improved degree of the right-sided pneumothorax and was estimated at 10% with the new right axillary subcutaneous edema. No chest pain, no worsening dyspnea, patient is working on incentive spirometer, vital signs are stable, patient's Thoravent was capped with a one-way valve, follow-up chest x- ray showed increase in the right-sided pneumothorax by 15-20%. Thoravent was placed back to suction. Repeat chest x-ray in the morning.breath sounds heard over right upper and lower lobes, patient is maintaining good oxygenation, room air pulse ox is 93%. Hemodynamically patient stable, bubbling was noted in the water seal chamber after placement to suction, and stopped after a couple minutes. Objective - Vital Signs Vital signs: Vital Signs Temp 97.2 F L 06/06/18 16:23 Pulse 71 06/06/18 16:23 Resp 20 06/06/18 16:23 BP 114/67 06/06/18 16:23 Pulse Ox 93 L 06/06/18 16:23 Intake & Output 06/05/18 06/06/18 06/06/18 18:59 06:59 18:59 Intake Total 240 480 Output Total 400 Balance 240 80 Weight 43.545 kg 41 kg 41 kg Intake: Oral 240 480 Output: Urine 400 Other: Voiding Method Toilet # Voids 1 - Exam GENERAL EXAM: Alert, pleasant, 57-year-old white female, comfortable in no apparent distress. HEAD: Normocephalic/atraumatic. EYES: Normal reaction of pupils, equal size. Conjunctiva pink, sclera white. NOSE: Clear with pink turbinates. THROAT: No erythema or exudates. NECK: No masses, no JVD, no thyroid enlargement, no adenopathy. CHEST: No chest wall deformity. right upper chest Thoravent present, to Pleuravac and wall suction, minimal serosanguineous output in the Pleur-evac LUNGS: Equal air entry with no crackles, wheeze, rhonchi or dullness. CVS: Regular rate and rhythm, normal S1 and S2, no gallops, no murmurs, no rubs ABDOMEN: Soft, nontender. No hepatosplenomegaly, normal bowel sounds, no guarding or rigidity. EXTREMITIES: No clubbing, no edema, no cyanosis, 2+ pulses and upper and lower extremities. MUSCULOSKELETAL: Muscle strength and tone normal. SPINE: No scoliosis or deformity SKIN: No rashes CENTRAL NERVOUS SYSTEM: Alert and oriented -3. No focal deficits, tone is normal in all 4 extremities. PSYCHIATRIC: Alert and oriented -3. Appropriate affect. Intact judgment and insight. - Labs CBC & Chem 7: 06/05/18 12:35 06/05/18 12:35 Assessment and Plan Plan: 1 spontaneous pneumothorax, likely secondary to underlying COPD. The patient to 50% pneumothorax on the right and the patient had a Thoravent inserted with partial reexpansion 2 smoker 3 chronic insomnia 4 fibromyalgia 5 chronic anxiety 6 depression 7 borderline percent disorder 8 hypothyroidism 9 peripheral neuropathy Plan: We'll obtain a repeat chest x-ray in the morning, today we attempted to Thoravent with the one way valve cap, and follow-up chest x-ray showed increase in the size of the right-sided pneumothorax, after which theThoravent was placed back to suction. Encouraging deep breathing and coughing, daily chest x- rays. No chest pain, no difficulty breathing. I performed a history & physical examination of the patient and discussed their management with my nurse practitioner, Sharla Lubin. I reviewed the nurse practitioner's note and agree with the documented findings and plan of care. Lung sounds are positive for clear breath sounds. The findings and the impression was discussed with the patient. I attest to the documentation by the nurse practitioner. Time with Patient: Less than 30
[2018-06-06] MEDS: ARIPiprazole 10 MG TAB PO SCH (20:43)
[2018-06-06] MEDS: GABAPENTIN 300 MG CAP PO SCH (20:43)
[2018-06-06] MEDS: traZODone HCL 100 MG TAB PO SCH (20:43)
[2018-06-07] MEDS: LEVOTHYROXINE 88 MCG TAB PO SCH (06:35)
--- NOTE | 2018-06-07 07:44 | XR ---
EXAMINATION TYPE: XR chest 1V portable DATE OF EXAM: 06/07/2018 CLINICAL HISTORY: Difficulty breathing progress study. TECHNIQUE: Single AP portable upright view of the chest is obtained. COMPARISON: Chest x-ray from one day earlier FINDINGS: The cardiomediastinal silhouette is unchanged. Right-sided pleural catheter is stable in position. Decreased size of right-sided pneumothorax. The p eriphery of the right lung shows a vague hazy opacity which is likely related to the catheter placeme nt. Left lung is clear. No pleural effusion. The subcutaneous air seen in the region of the right axi lla is unchanged. IMPRESSION: 1. Interval decreased size of right-sided pneumothorax. 2. Stable position of pleural catheter.
[2018-06-07] MEDS: busPIRone HCl 10 MG TAB PO SCH ×2 (09:37→22:10)
[2018-06-07] MEDS: VORTIOXETINE HYDROBROMIDE 10 MG TABLET PO SCH (09:38)
[2018-06-07] MEDS: ARIPiprazole 5 MG TAB PO SCH (09:38)
[2018-06-07] MEDS: GABAPENTIN 100 MG CAP PO SCH ×2 (09:38→17:16)
[2018-06-07] MEDS: FAMOTIDINE 20 MG TAB PO SCH ×2 (09:38→22:10)
[2018-06-07] MEDS: NICOTINE 14MG/24HR PATCH TRANSDERM SCH (10:23)
[2018-06-07] MEDS: KETOROLAC 30 MG/ML 1 ML VIAL IVP PRN (10:23)
--- NOTE | 2018-06-07 11:20 | P.PN ---
Subjective 57-year-old the female admitted for spottiness pneumothorax in the right side repeat chest x-ray showed resolving pneumothorax. Patient is presently contacted to suction and has a prominent in place patient has mild subcutaneous emphysema as well as asked x-ray as well as clinically mild crepitus patient is comparing of pain in the right shoulder area. 06/07/2018 No overnight events patient is feeling well and Pneumovax continues to improve patient the still connected to suction Constitutional: Denied any fatigue denied any fever. Cardio vascular: denied any chest pain, palpitations Gastrointestinal denied any nausea vomiting Pulmonary: Denied any shortness of breath cough Neurologic denied any new focal deficits All inpatient medications were reviewed and appropriate changes in these medications as dictated in the interval history and assessment and plan. Objective - Vital Signs Vital signs: Vital Signs Temp 97.9 F 06/07/18 08:00 Pulse 68 06/07/18 08:00 Resp 16 06/07/18 08:00 BP 94/49 06/07/18 08:00 Pulse Ox 94 L 06/07/18 08:00 Intake & Output 06/06/18 06/07/18 06/07/18 18:59 06:59 18:59 Intake Total 702 Output Total 1100 0 Balance -398 0 Weight 41 kg 41.5 kg Intake: Oral 702 Output: Urine 1100 0 Other: Voiding Method Toilet # Voids 0 - Exam PHYSICAL EXAMINATION: GENERAL: The patient is alert and oriented x3, not in any acute distress. Thin built female HEENT: Pupils are round and equally reacting to light. EOMI. No scleral icterus. No conjunctival pallor. Normocephalic, atraumatic. No pharyngeal erythema. No thyromegaly. CARDIOVASCULAR: S1 and S2 present. No murmurs, rubs, or gallops. PULMONARY: Chest is clear to auscultation, no wheezing or crackles. ABDOMEN: Soft, nontender, nondistended, normoactive bowel sounds. No palpable organomegaly. MUSCULOSKELETAL: No joint swelling or deformity. EXTREMITIES: No cyanosis, clubbing, or pedal edema. NEUROLOGICAL: Gross neurological examination did not reveal any focal deficits. SKIN: No rashes. - Labs CBC & Chem 7: 06/05/18 12:35 06/05/18 12:35 Assessment and Plan Plan: -Spontaneous pneumothorax probably secondary to ruptured bullae and underlying COPD and emphysema: Patient had a thorough vent that was placed with the significant expansion discernment will be connected to vacuum suction. Repeat chest x-ray showed improvement in pneumothorax patient will be continued on Toradol along with GI prophylaxis -Nicotine abuse with possibility of undiagnosed COPD not in acute exacerbation -Fibromyalgia -Depression and anxiety disorder -Hypothyroidism -Peripheral neuropathy etiology is unknown.
[2018-06-07] MEDS: MULTIVITAMINS, THERA 1 EACH TAB PO SCH (11:58)
[2018-06-07] MEDS: HYDROmorphone 1 MG/ML 1 ML SYRINGE IVP PRN (12:45)
--- NOTE | 2018-06-07 14:49 | P.PN ---
Subjective Progress Note Date: 06/07/18 Principal diagnosis: Spontaneous pneumothorax. 57-year-old here patient, a chronic smoker presented to [facility] because of chest pain and shortness of breath. She was found to have a spontaneous pneumothorax on the right side identified by chest x-ray that was done based on the chest x-ray that was done in the emergency department. The right-sided pneumothorax was estimated to be around 50%. No hemodynamic instability. The Thoravent was inserted. There was partial expansion and the patient was admitted to the medical floor. Currently she is hemodynamically stable. She is free of any chest pain. Shortness of breath has subsided. I saw the patient a medical floor. I connected the thoravent to pleuroVAC and wall suction. No previous history of pneumothoraces. No trauma. She is a chronic smoker in she probably has underlying COPD. On 06/06/2018 patient seen in follow-up. right-sided Thora-Vent, today's chest x -ray showed improved degree of the right-sided pneumothorax and was estimated at 10% with the new right axillary subcutaneous edema. No chest pain, no worsening dyspnea, patient is working on incentive spirometer, vital signs are stable, patient's Thoravent was capped with a one-way valve, follow-up chest x- ray showed increase in the right-sided pneumothorax by 15-20%. Thoravent was placed back to suction. Repeat chest x-ray in the morning.breath sounds heard over right upper and lower lobes, patient is maintaining good oxygenation, room air pulse ox is 93%. Hemodynamically patient stable, bubbling was noted in the water seal chamber after placement to suction, and stopped after a couple minutes. Patient is seen today 06/07/2017 in follow-up on the selective care unit. She remains awake and alert in no acute distress. Right-sided Thora vent remains in place into wall suction. Today's chest x-ray shows resolution of the spontaneous pneumothorax. Yesterday we trialed her off the suction and her pneumothorax returned at 15-20%. We'll give her another trial tomorrow. He denies any worsening shortness of breath, cough or congestion. She is maintaining good O2 saturations in the 90s on room air. She's been afebrile. Hemodynamically stable. Objective - Vital Signs Vital signs: Vital Signs Temp 98.7 F 06/07/18 11:56 Pulse 65 06/07/18 11:56 Resp 18 06/07/18 11:56 BP 110/52 06/07/18 11:56 Pulse Ox 96 06/07/18 11:56 Intake & Output 06/06/18 06/07/18 06/07/18 18:59 06:59 18:59 Intake Total 702 480 Output Total 1100 0 800 Balance -398 0 -320 Weight 41 kg 41.5 kg Intake: Oral 702 480 Output: Urine 1100 0 800 Other: Voiding Method Toilet # Voids 0 - Exam GENERAL EXAM: Alert, active, comfortable in no apparent distress. On room air. HEAD: Normocephalic. EYES: Normal reaction of pupils, equal size. NOSE: Clear with pink turbinates. THROAT: No erythema or exudates. NECK: No masses, no JVD. CHEST: No chest wall deformity. LUNGS: Equal air entry with no crackles, wheeze, rhonchi or dullness. CVS: S1 and S2 normal with no audible murmur, regular rhythm. ABDOMEN: No hepatosplenomegaly, normal bowel sounds, no guarding or rigidity. SPINE: No scoliosis or deformity SKIN: No rashes CENTRAL NERVOUS SYSTEM: No focal deficits, tone is normal in all 4 extremities. EXTREMITIES: There is no peripheral edema. No clubbing, no cyanosis. Peripheral pulses are intact. - Labs CBC & Chem 7: 06/05/18 12:35 06/05/18 12:35 Assessment and Plan Assessment: 1 spontaneous pneumothorax, likely secondary to underlying COPD. The patient to 50% pneumothorax on the right and the patient had a Thoravent inserted with partial reexpansion 2 smoker 3 chronic insomnia 4 fibromyalgia 5 chronic anxiety 6 depression 7 borderline percent disorder 8 hypothyroidism 9 peripheral neuropathy Plan: The patient was seen and evaluated by Dr. Dent. Today's chest x-ray shows no significant pneumothorax. We will continue with wall suction to the right sided Thora-Vent another 24 hours. Repeat a chest x-ray in the a.m. She is again educated regarding the importance of complete smoking cessation. We'll continue to follow. I, the cosigning physician, performed a history & physical examination of the patient. Lungs sounds are clear, diminished. Maintaining good O2 saturations in the 90s on room air. I discussed the assessment and plan of care with my nurse practitioner, Eri Burgos. I attest to the above note as dictated by her.
[2018-06-07] MEDS: SODIUM CHLORIDE 0.9% 1,000 ML IV SCH (17:16)
[2018-06-07] MEDS: ARIPiprazole 10 MG TAB PO SCH (22:10)
[2018-06-07] MEDS: traZODone HCL 100 MG TAB PO SCH (22:11)
[2018-06-07] MEDS: GABAPENTIN 300 MG CAP PO SCH (22:11)
[2018-06-08] MEDS: LEVOTHYROXINE 88 MCG TAB PO SCH (06:35)
[2018-06-08] MEDS: GABAPENTIN 100 MG CAP PO SCH ×2 (09:07→15:13)
[2018-06-08] MEDS: ARIPiprazole 5 MG TAB PO SCH (09:07)
[2018-06-08] MEDS: busPIRone HCl 10 MG TAB PO SCH ×2 (09:07→20:42)
[2018-06-08] MEDS: VORTIOXETINE HYDROBROMIDE 10 MG TABLET PO SCH (09:07)
[2018-06-08] MEDS: MULTIVITAMINS, THERA 1 EACH TAB PO SCH (09:07)
[2018-06-08] MEDS: FAMOTIDINE 20 MG TAB PO SCH ×2 (09:07→20:42)
[2018-06-08] MEDS: HYDROmorphone 1 MG/ML 1 ML SYRINGE IVP PRN ×2 (09:08→18:31)
[2018-06-08] MEDS: NICOTINE 14MG/24HR PATCH TRANSDERM SCH (10:41)
--- NOTE | 2018-06-08 11:04 | P.PN ---
Subjective 57-year-old the female admitted for spottiness pneumothorax in the right side repeat chest x-ray showed resolving pneumothorax. Patient is presently contacted to suction and has a prominent in place patient has mild subcutaneous emphysema as well as asked x-ray as well as clinically mild crepitus patient is comparing of pain in the right shoulder area. 06/07/2018 No overnight events patient is feeling well and Pneumovax continues to improve patient the still connected to suction 06/08/2018 Patient continues to be connected to wall suction, probably this was suction can be discontinued and monitor her today and if she does well she can be discharged tomorrow Constitutional: Denied any fatigue denied any fever. Cardio vascular: denied any chest pain, palpitations Gastrointestinal denied any nausea vomiting Pulmonary: Denied any shortness of breath cough Neurologic denied any new focal deficits All inpatient medications were reviewed and appropriate changes in these medications as dictated in the interval history and assessment and plan. Objective - Vital Signs Vital signs: Vital Signs Temp 97.9 F 06/08/18 08:00 Pulse 80 06/08/18 08:00 Resp 18 06/08/18 08:00 BP 109/67 06/08/18 08:00 Pulse Ox 96 06/08/18 08:00 Intake & Output 06/07/18 06/08/18 06/08/18 18:59 06:59 18:59 Intake Total 720 137 Output Total 800 Balance -80 137 Weight 41.6 kg Intake: Oral 720 137 Output: Urine 800 Other: Voiding Method Toilet # Voids 3 2 2 - Exam PHYSICAL EXAMINATION: GENERAL: The patient is alert and oriented x3, not in any acute distress. Thin built female HEENT: Pupils are round and equally reacting to light. EOMI. No scleral icterus. No conjunctival pallor. Normocephalic, atraumatic. No pharyngeal erythema. No thyromegaly. CARDIOVASCULAR: S1 and S2 present. No murmurs, rubs, or gallops. PULMONARY: Chest is clear to auscultation, no wheezing or crackles. ABDOMEN: Soft, nontender, nondistended, normoactive bowel sounds. No palpable organomegaly. MUSCULOSKELETAL: No joint swelling or deformity. EXTREMITIES: No cyanosis, clubbing, or pedal edema. NEUROLOGICAL: Gross neurological examination did not reveal any focal deficits. SKIN: No rashes. - Labs CBC & Chem 7: 06/05/18 12:35 06/05/18 12:35 Assessment and Plan Plan: -Spontaneous pneumothorax probably secondary to ruptured bullae and underlying COPD and emphysema: Patient had a thorough vent that was placed with the significant expansion discernment will be connected to vacuum suction. Sterile connected to wall suction this will be discussed in your treatment and repeat chest x-ray tomorrow if there is no pneumothorax patient can be discharged at the time -Nicotine abuse with possibility of undiagnosed COPD not in acute exacerbation -Fibromyalgia -Depression and anxiety disorder -Hypothyroidism -Peripheral neuropathy etiology is unknown.
--- NOTE | 2018-06-08 14:29 | XR ---
EXAMINATION TYPE: XR chest 1V portable DATE OF EXAM: 06/08/2018 COMPARISON: 06/07/2018 INDICATION: Pneumothorax TECHNIQUE: Single frontal view of the chest is obtained. FINDINGS: The heart size is normal. The pulmonary vasculature is normal. The lungs are clear. No definite pneumothorax is evident. Right-sided chest tube remains present. There is right-sided sub cutaneous emphysema present. IMPRESSION: 1. No pneumothorax. Chest tube remains in position.
--- NOTE | 2018-06-08 16:52 | P.PN ---
Subjective Progress Note Date: 06/08/18 57-year-old here patient, a chronic smoker presented to [facility] because of chest pain and shortness of breath. She was found to have a spontaneous pneumothorax on the right side identified by chest x-ray that was done based on the chest x-ray that was done in the emergency department. The right-sided pneumothorax was estimated to be around 50%. No hemodynamic instability. The Thoravent was inserted. There was partial expansion and the patient was admitted to the medical floor. Currently she is hemodynamically stable. She is free of any chest pain. Shortness of breath has subsided. I saw the patient a medical floor. I connected the thoravent to pleuroVAC and wall suction. No previous history of pneumothoraces. No trauma. She is a chronic smoker in she probably has underlying COPD. On 06/06/2018 patient seen in follow-up. right-sided Thora-Vent, today's chest x -ray showed improved degree of the right-sided pneumothorax and was estimated at 10% with the new right axillary subcutaneous edema. No chest pain, no worsening dyspnea, patient is working on incentive spirometer, vital signs are stable, patient's Thoravent was capped with a one-way valve, follow-up chest x- ray showed increase in the right-sided pneumothorax by 15-20%. Thoravent was placed back to suction. Repeat chest x-ray in the morning.breath sounds heard over right upper and lower lobes, patient is maintaining good oxygenation, room air pulse ox is 93%. Hemodynamically patient stable, bubbling was noted in the water seal chamber after placement to suction, and stopped after a couple minutes. Patient is seen today 06/07/2017 in follow-up on the selective care unit. She remains awake and alert in no acute distress. Right-sided Thora vent remains in place into wall suction. Today's chest x-ray shows resolution of the spontaneous pneumothorax. Yesterday we trialed her off the suction and her pneumothorax returned at 15-20%. We'll give her another trial tomorrow. He denies any worsening shortness of breath, cough or congestion. She is maintaining good O2 saturations in the 90s on room air. She's been afebrile. Hemodynamically stable. On 06/08/2018, the patient is awake and alert. No respiratory distress. Limited advanced emphysema over the right anterior chest area. Chest x-ray showed adequate expansion of the right lung. No significant air leaks in the Pleur-evac. No shortness of breath. No cough or sputum production. No other complaints otherwise for now. The chest x-ray showed no pneumothorax. Chest tube is in a good location. Objective - Vital Signs Vital signs: Vital Signs Temp 98.2 F 06/08/18 11:22 Pulse 63 06/08/18 11:22 Resp 16 06/08/18 11:22 BP 111/66 06/08/18 11:22 Pulse Ox 95 06/08/18 11:22 Intake & Output 06/07/18 06/08/18 06/08/18 18:59 06:59 18:59 Intake Total 720 137 180 Output Total 800 950 Balance -80 137 -770 Weight 41.6 kg Intake: Oral 720 137 180 Output: Urine 800 950 Other: Voiding Method Toilet # Voids 3 2 2 - Exam GENERAL EXAM: Alert, active, comfortable in no apparent distress. On room air. HEAD: Normocephalic. EYES: Normal reaction of pupils, equal size. NOSE: Clear with pink turbinates. THROAT: No erythema or exudates. NECK: No masses, no JVD. CHEST: No chest wall deformity. LUNGS: Equal air entry with no crackles, wheeze, rhonchi or dullness. The patient has a thora vent over the right anterior chest area. CVS: S1 and S2 normal with no audible murmur, regular rhythm. ABDOMEN: No hepatosplenomegaly, normal bowel sounds, no guarding or rigidity. SPINE: No scoliosis or deformity SKIN: No rashes CENTRAL NERVOUS SYSTEM: No focal deficits, tone is normal in all 4 extremities. EXTREMITIES: There is no peripheral edema. No clubbing, no cyanosis. Peripheral pulses are intact. - Labs CBC & Chem 7: 06/05/18 12:35 06/05/18 12:35 Assessment and Plan Plan: Assessment 1 spontaneous pneumothorax, likely secondary to underlying COPD. The patient to 50% pneumothorax on the right and the patient had a Thoravent inserted and the lung is fully expanded this point in time without any significant air leaks. 2 smoker 3 chronic insomnia 4 fibromyalgia 5 chronic anxiety 6 depression 7 borderline percent disorder 8 hypothyroidism 9 peripheral neuropathy Plan Daily chest x-rays. Incentive spirometer. Monitor and keep the Thoravent to a Pleur-evac. Repeat chest x-ray in the morning. If the lung is still expanded and there is no evidence of air leak, will cap the chest tube and consider removing admitted later stage. We'll continue to follow.
[2018-06-08] MEDS: SODIUM CHLORIDE 0.9% 1,000 ML IV SCH (18:35)
[2018-06-08] MEDS: ARIPiprazole 10 MG TAB PO SCH (20:42)
[2018-06-08] MEDS: traZODone HCL 100 MG TAB PO SCH (20:42)
[2018-06-08] MEDS: GABAPENTIN 300 MG CAP PO SCH (20:42)
[2018-06-09] MEDS: LEVOTHYROXINE 88 MCG TAB PO SCH (05:54)
--- NOTE | 2018-06-09 07:54 | XR ---
EXAMINATION TYPE: XR chest 2V DATE OF EXAM: 06/09/2018 COMPARISON: 06/08/2018 INDICATION: Spontaneous pneumothorax TECHNIQUE: Frontal and lateral views of the chest are obtained. FINDINGS: The heart size is normal. The pulmonary vasculature is normal. The lungs are clear. Very tiny right apical pneumothorax is present. The subcutaneous emphysema is d iminishing. Right-sided chest tube remains in position. IMPRESSION: 1. Very tiny right apical pneumothorax slightly more visible currently.
[2018-06-09] MEDS: GABAPENTIN 100 MG CAP PO SCH ×2 (08:27→17:27)
[2018-06-09] MEDS: MULTIVITAMINS, THERA 1 EACH TAB PO SCH (08:27)
[2018-06-09] MEDS: FAMOTIDINE 20 MG TAB PO SCH ×2 (08:27→20:33)
[2018-06-09] MEDS: busPIRone HCl 10 MG TAB PO SCH ×2 (08:27→20:33)
[2018-06-09] MEDS: NICOTINE 14MG/24HR PATCH TRANSDERM SCH (08:27)
[2018-06-09] MEDS: KETOROLAC 30 MG/ML 1 ML VIAL IVP PRN ×2 (08:28→22:11)
[2018-06-09] MEDS: VORTIOXETINE HYDROBROMIDE 10 MG TABLET PO SCH (08:30)
[2018-06-09] MEDS: ARIPiprazole 5 MG TAB PO SCH (08:30)
--- NOTE | 2018-06-09 14:47 | XR ---
EXAMINATION TYPE: XR chest 2V DATE OF EXAM: 06/09/2018 COMPARISON: 06/18/2018 earlier exam INDICATION: Follow-up pneumothorax TECHNIQUE: Frontal and lateral views of the chest are obtained. FINDINGS: The heart size is normal. The pulmonary vasculature is normal. There is hyperinflation present. Right-sided chest tube is present. No pneumothorax is evident. Small amount subcutaneous emphysema is present on the right. IMPRESSION: 1. No pneumothorax. Right-sided chest tube remains in position.
--- NOTE | 2018-06-09 15:04 | P.PN ---
Subjective Progress Note Date: 06/09/18 Principal diagnosis: spontaneous pneumothorax, right side, status post Thoravent insertion 57-year-old here patient, a chronic smoker presented to [facility] because of chest pain and shortness of breath. She was found to have a spontaneous pneumothorax on the right side identified by chest x-ray that was done based on the chest x-ray that was done in the emergency department. The right-sided pneumothorax was estimated to be around 50%. No hemodynamic instability. The Thoravent was inserted. There was partial expansion and the patient was admitted to the medical floor. Currently she is hemodynamically stable. She is free of any chest pain. Shortness of breath has subsided. I saw the patient a medical floor. I connected the thoravent to pleuroVAC and wall suction. No previous history of pneumothoraces. No trauma. She is a chronic smoker in she probably has underlying COPD. On 06/06/2018 patient seen in follow-up. right-sided Thora-Vent, today's chest x -ray showed improved degree of the right-sided pneumothorax and was estimated at 10% with the new right axillary subcutaneous edema. No chest pain, no worsening dyspnea, patient is working on incentive spirometer, vital signs are stable, patient's Thoravent was capped with a one-way valve, follow-up chest x- ray showed increase in the right-sided pneumothorax by 15-20%. Thoravent was placed back to suction. Repeat chest x-ray in the morning.breath sounds heard over right upper and lower lobes, patient is maintaining good oxygenation, room air pulse ox is 93%. Hemodynamically patient stable, bubbling was noted in the water seal chamber after placement to suction, and stopped after a couple minutes. On 06/09/2018 patient seen in follow-up on selective care unit. His, comfortable, in no acute distress, she is working on her incentive spirometer, no dyspnea, no chest pain, room air pulse ox is 96%, afebrile, hemodynamically stable. Right sided thoravent is in place, to Pleur-evac to water seal. Today 's chest x-ray showed a very tiny right apical pneumothorax. No bubbling in the waterseal chamber. Patient's Thora vent has been capped. We'll obtain a follow-up chest x-ray in 1 hour. No new labs today. Objective - Vital Signs Vital signs: Vital Signs Temp 97.7 F 06/09/18 13:05 Pulse 65 06/09/18 13:05 Resp 16 06/09/18 13:05 BP 124/74 06/09/18 13:05 Pulse Ox 95 06/09/18 13:05 Intake & Output 06/08/18 06/09/18 06/09/18 18:59 06:59 18:59 Intake Total 180 402 480 Output Total 950 Balance -770 402 480 Weight 40.5 kg Intake: Oral 180 402 480 Output: Urine 950 Other: Voiding Method Toilet Toilet # Voids 1 1 1 - Exam GENERAL EXAM: Alert, pleasant, 57-year-old white female, comfortable in no apparent distress. HEAD: Normocephalic/atraumatic. EYES: Normal reaction of pupils, equal size. Conjunctiva pink, sclera white. NOSE: Clear with pink turbinates. THROAT: No erythema or exudates. NECK: No masses, no JVD, no thyroid enlargement, no adenopathy. CHEST: No chest wall deformity. right upper chest Thoravent present, to Pleuravac, to waterseal, no air leak noted LUNGS: Equal air entry with no crackles, wheeze, rhonchi or dullness. CVS: Regular rate and rhythm, normal S1 and S2, no gallops, no murmurs, no rubs ABDOMEN: Soft, nontender. No hepatosplenomegaly, normal bowel sounds, no guarding or rigidity. EXTREMITIES: No clubbing, no edema, no cyanosis, 2+ pulses and upper and lower extremities. MUSCULOSKELETAL: Muscle strength and tone normal. SPINE: No scoliosis or deformity SKIN: No rashes CENTRAL NERVOUS SYSTEM: Alert and oriented -3. No focal deficits, tone is normal in all 4 extremities. PSYCHIATRIC: Alert and oriented -3. Appropriate affect. Intact judgment and insight. - Labs CBC & Chem 7: 06/05/18 12:35 06/05/18 12:35 Assessment and Plan Plan: 1 spontaneous pneumothorax, likely secondary to underlying COPD. The patient to 50% pneumothorax on the right and the patient had a Thoravent inserted with reexpansion 2 smoker 3 chronic insomnia 4 fibromyalgia 5 chronic anxiety 6 depression 7 borderline percent disorder 8 hypothyroidism 9 peripheral neuropathy Plan: Right-sided Thoravent to waterseal overnight, today's chest x-ray has been reviewed, and shows a very tiny right apical pneumothorax, no air leak noted. Patient is calm and comfortable, oxygenating well, she is on room air, she is working on her incentive spirometer. We'll cap the thoravent, and obtain a follow up chest x-ray in 1 hour, if the lung stays reexpanded, likely discontinue the Thoravent and possibly discharge home I performed a history & physical examination of the patient and discussed their management with my nurse practitioner, Sharla Lubin. I reviewed the nurse practitioner's note and agree with the documented findings and plan of care. Lung sounds are positive for clear breath sounds. The findings and the impression was discussed with the patient. I attest to the documentation by the nurse practitioner. Time with Patient: Less than 30
[2018-06-09] MEDS: HYDROmorphone 1 MG/ML 1 ML SYRINGE IVP PRN (17:30)
[2018-06-09] MEDS: SODIUM CHLORIDE 0.9% 1,000 ML IV SCH (20:25)
[2018-06-09] MEDS: GABAPENTIN 300 MG CAP PO SCH (20:33)
[2018-06-09] MEDS: ARIPiprazole 10 MG TAB PO SCH (20:33)
[2018-06-09] MEDS: traZODone HCL 100 MG TAB PO SCH (20:33)
[2018-06-10 04:09] VITALS: RESP 16; TEMP 98.1
[2018-06-10] MEDS: LEVOTHYROXINE 88 MCG TAB PO SCH (05:41)
--- NOTE | 2018-06-10 08:35 | XR ---
EXAMINATION TYPE: XR chest 2V DATE OF EXAM: 06/10/2018 COMPARISON: 06/09/2018 HISTORY: 57-year-old female follow-up spontaneous pneumothorax TECHNIQUE: PA and lateral views FINDINGS: Right-sided Thora Vent catheter anteriorly at the second intercostal space remains in place. No appre ciable pneumothorax. Heart normal size. Mild hyperinflation. No consolidation or pleural effusion. Mi ld subcutaneous emphysema along the right lateral chest wall. IMPRESSION: 1. Right-sided Thora Vent catheter without appreciable pneumothorax. 2. Hyperinflation may relate to depth of inspiration or underlying emphysema.
[2018-06-10] MEDS: NICOTINE 14MG/24HR PATCH TRANSDERM SCH (08:52)
[2018-06-10] MEDS: FAMOTIDINE 20 MG TAB PO SCH (08:52)
[2018-06-10] MEDS: busPIRone HCl 10 MG TAB PO SCH (08:53)
[2018-06-10] MEDS: MULTIVITAMINS, THERA 1 EACH TAB PO SCH (08:53)
[2018-06-10] MEDS: GABAPENTIN 100 MG CAP PO SCH (08:53)
[2018-06-10] MEDS: ARIPiprazole 10 MG TAB PO SCH (08:54)
[2018-06-10] MEDS: ARIPiprazole 5 MG TAB PO SCH (08:54)
[2018-06-10] MEDS: VORTIOXETINE HYDROBROMIDE 10 MG TABLET PO SCH (08:56)
[2018-06-10 09:01] VITALS: BP 108/55; PULSE 67
--- NOTE | 2018-06-10 11:57 | P.PN ---
Subjective Progress Note Date: 06/09/18 57-year-old the female admitted for spottiness pneumothorax in the right side repeat chest x-ray showed resolving pneumothorax. Patient is presently contacted to suction and has a prominent in place patient has mild subcutaneous emphysema as well as asked x-ray as well as clinically mild crepitus patient is comparing of pain in the right shoulder area. 06/07/2018 No overnight events patient is feeling well and Pneumovax continues to improve patient the still connected to suction 06/08/2018 Patient continues to be connected to wall suction, probably this was suction can be discontinued and monitor her today and if she does well she can be discharged tomorrow 06/09/2018 Patient chest tube is connected to underwater seal probably this can be removed and monitored overnight and patient probably can be discharged tomorrow Constitutional: Denied any fatigue denied any fever. Cardio vascular: denied any chest pain, palpitations Gastrointestinal denied any nausea vomiting Pulmonary: Denied any shortness of breath cough Neurologic denied any new focal deficits All inpatient medications were reviewed and appropriate changes in these medications as dictated in the interval history and assessment and plan. Objective - Vital Signs Vital signs: Vital Signs Temp 98.1 F 06/10/18 04:00 Pulse 67 06/10/18 08:00 Resp 16 06/10/18 11:19 BP 108/55 06/10/18 08:00 Pulse Ox 95 06/10/18 08:00 Intake & Output 06/09/18 06/10/18 06/10/18 18:59 06:59 18:59 Intake Total 580 200 240 Output Total 500 Balance 580 200 -260 Weight 44 kg Intake: Oral 580 200 240 Output: Urine 500 Other: Voiding Method Toilet Toilet Toilet # Voids 3 1 1 - Exam PHYSICAL EXAMINATION: GENERAL: The patient is alert and oriented x3, not in any acute distress. Thin built female HEENT: Pupils are round and equally reacting to light. EOMI. No scleral icterus. No conjunctival pallor. Normocephalic, atraumatic. No pharyngeal erythema. No thyromegaly. CARDIOVASCULAR: S1 and S2 present. No murmurs, rubs, or gallops. PULMONARY: Chest is clear to auscultation, no wheezing or crackles. ABDOMEN: Soft, nontender, nondistended, normoactive bowel sounds. No palpable organomegaly. MUSCULOSKELETAL: No joint swelling or deformity. EXTREMITIES: No cyanosis, clubbing, or pedal edema. NEUROLOGICAL: Gross neurological examination did not reveal any focal deficits. SKIN: No rashes. - Labs CBC & Chem 7: 06/05/18 12:35 06/05/18 12:35 Assessment and Plan Plan: -Spontaneous pneumothorax probably secondary to ruptured bullae and underlying COPD and emphysema: Patient had a Thoravent that was placed with the significant expansion now connected to underwater seal without any air leak probably chest tube can come out and monitor 1 more night possibility of discharge tomorrow -Nicotine abuse with possibility of undiagnosed COPD not in acute exacerbation -Fibromyalgia -Depression and anxiety disorder -Hypothyroidism -Peripheral neuropathy etiology is unknown.
--- NOTE | 2018-06-10 11:59 | P.DS ---
Providers Date of admission: 06/05/18 15:15 Attending physician: Jose F Mason Consults: 06/05/18 15:17 Consult Physician Urgent Consulting Provider: Antoine Dent Consult Reason/Comments: Pneumothorax Do you want consulting provider notified?: Already Contacted Primary care physician: [facility] Hospital Course: 57-year-old the female admitted for spottiness pneumothorax in the right side repeat chest x-ray showed resolving pneumothorax. Patient is presently contacted to suction and has a prominent in place patient has mild subcutaneous emphysema as well as asked x-ray as well as clinically mild crepitus patient is comparing of pain in the right shoulder area. 06/07/2018 No overnight events patient is feeling well and Pneumovax continues to improve patient the still connected to suction 06/08/2018 Patient continues to be connected to wall suction, probably this was suction can be discontinued and monitor her today and if she does well she can be discharged tomorrow 06/09/2018 Patient chest tube is connected to underwater seal probably this can be removed and monitored overnight and patient probably can be discharged tomorrow 06/10/2018 Patient chest tube was removed and patient is clinically doing well and will be discharged today PHYSICAL EXAMINATION: GENERAL: The patient is alert and oriented x3, not in any acute distress. Thin built female HEENT: Pupils are round and equally reacting to light. EOMI. No scleral icterus. No conjunctival pallor. Normocephalic, atraumatic. No pharyngeal erythema. No thyromegaly. CARDIOVASCULAR: S1 and S2 present. No murmurs, rubs, or gallops. PULMONARY: Chest is clear to auscultation, no wheezing or crackles. ABDOMEN: Soft, nontender, nondistended, normoactive bowel sounds. No palpable organomegaly. MUSCULOSKELETAL: No joint swelling or deformity. EXTREMITIES: No cyanosis, clubbing, or pedal edema. NEUROLOGICAL: Gross neurological examination did not reveal any focal deficits. SKIN: No rashes. Assessment and Plan Plan: -Spontaneous pneumothorax probably secondary to ruptured bullae and underlying COPD and emphysema -Nicotine abuse with possibility of undiagnosed COPD not in acute exacerbation -Fibromyalgia -Depression and anxiety disorder -Hypothyroidism -Peripheral neuropathy etiology is unknown. Patient Condition at Discharge: Stable Plan - Discharge Summary Discharge Rx Participant: Yes New Discharge Prescriptions: New Albuterol Inhaler [Ventolin Hfa Inhaler] 1 - 2 puff INHALATION Q6HR PRN #1 inhaler PRN Reason: Shortness Of Breath Or Wheezing Budesonide-Formot 160-4.5 Mcg [Symbicort 160-4.5 Mcg Inhaler] 2 puff INHALATION BID #1 inhaler Continue traZODone HCL 300 mg PO HS Levothyroxine Sodium [Synthroid] 88 mcg PO DAILY Multivitamins, Thera [Multivitamin (formulary)] 1 tab PO DAILY Gabapentin [Neurontin] 300 mg PO HS ARIPiprazole [Abilify] 10 mg PO HS hydrOXYzine PAMOATE [Vistaril] 25 mg PO BID PRN PRN Reason: Anxiety Vortioxetine Hydrobromide [Trintellix] 10 mg PO DAILY Gabapentin [Neurontin] 100 mg PO BID busPIRone HCL 15 mg PO BID ARIPiprazole [Abilify] 5 mg PO DAILY Discharge Medication List Levothyroxine Sodium [Synthroid] 88 mcg PO DAILY 02/20/18 [History] traZODone HCL 300 mg PO HS 02/20/18 [History] ARIPiprazole [Abilify] 5 mg PO DAILY 06/02/18 [History] ARIPiprazole [Abilify] 10 mg PO HS 06/02/18 [History] Gabapentin [Neurontin] 100 mg PO BID 06/02/18 [History] Gabapentin [Neurontin] 300 mg PO HS 06/02/18 [History] Multivitamins, Thera [Multivitamin (formulary)] 1 tab PO DAILY 06/02/18 [History ] Vortioxetine Hydrobromide [Trintellix] 10 mg PO DAILY 06/02/18 [History] busPIRone HCL 15 mg PO BID 06/02/18 [History] hydrOXYzine PAMOATE [Vistaril] 25 mg PO BID PRN 06/02/18 [History] Albuterol Inhaler [Ventolin Hfa Inhaler] 1 - 2 puff INHALATION Q6HR PRN #1 inhaler 06/10/18 [Rx] Budesonide-Formot 160-4.5 Mcg [Symbicort 160-4.5 Mcg Inhaler] 2 puff INHALATION BID #1 inhaler 06/10/18 [Rx] Follow up Appointment(s)/Referral(s): [facility], [NON-STAFF] - Rupali Palencia MD [Primary Care Provider] - 06/13/18 10:45 am (Saturday) Antoine Dent MD [STAFF PHYSICIAN] - 07/03/18 1:00 pm Patient Instructions/Handouts: Spontaneous Pneumothorax (DC), How to Stop Smoking (DC) Discharge Disposition: HOME SELF-CARE
--- NOTE | 2018-06-10 14:17 | P.PN ---
Subjective Progress Note Date: 06/10/18 Principal diagnosis: spontaneous pneumothorax, right side, status post Thoravent insertion 57-year-old here patient, a chronic smoker presented to [facility] because of chest pain and shortness of breath. She was found to have a spontaneous pneumothorax on the right side identified by chest x-ray that was done based on the chest x-ray that was done in the emergency department. The right-sided pneumothorax was estimated to be around 50%. No hemodynamic instability. The Thoravent was inserted. There was partial expansion and the patient was admitted to the medical floor. Currently she is hemodynamically stable. She is free of any chest pain. Shortness of breath has subsided. I saw the patient a medical floor. I connected the thoravent to pleuroVAC and wall suction. No previous history of pneumothoraces. No trauma. She is a chronic smoker in she probably has underlying COPD. On 06/06/2018 patient seen in follow-up. right-sided Thora-Vent, today's chest x -ray showed improved degree of the right-sided pneumothorax and was estimated at 10% with the new right axillary subcutaneous edema. No chest pain, no worsening dyspnea, patient is working on incentive spirometer, vital signs are stable, patient's Thoravent was capped with a one-way valve, follow-up chest x- ray showed increase in the right-sided pneumothorax by 15-20%. Thoravent was placed back to suction. Repeat chest x-ray in the morning.breath sounds heard over right upper and lower lobes, patient is maintaining good oxygenation, room air pulse ox is 93%. Hemodynamically patient stable, bubbling was noted in the water seal chamber after placement to suction, and stopped after a couple minutes. On 06/09/2018 patient seen in follow-up on selective care unit. His, comfortable, in no acute distress, she is working on her incentive spirometer, no dyspnea, no chest pain, room air pulse ox is 96%, afebrile, hemodynamically stable. Right sided thoravent is in place, to Pleur-evac to water seal. Today 's chest x-ray showed a very tiny right apical pneumothorax. No bubbling in the waterseal chamber. Patient's Thora vent has been capped. We'll obtain a follow-up chest x-ray in 1 hour. No new labs today. On 06/10/2018 patient seen in follow-up selective care unit, repeat chest x-ray today showed evidence of appreciable pneumothorax, right-sided thoravent has been capped since yesterday. Vital signs are stable, breath sounds are equal, difficulty breathing or patient is on room air, she's been tolerating ambulation , oxygen 95%, afebrile. Right-sided Thoravent was discontinued, occlusive dressing with vaseline impregnated gauze applied. Patient is doing well, no difficulty breathing, no chest pain. From pulmonary perspective She can be discharged home today Objective - Vital Signs Vital signs: Vital Signs Temp 98.1 F 06/10/18 04:00 Pulse 67 06/10/18 08:00 Resp 16 06/10/18 11:19 BP 108/55 06/10/18 08:00 Pulse Ox 95 06/10/18 08:00 Intake & Output 06/09/18 06/10/18 06/10/18 18:59 06:59 18:59 Intake Total 580 200 240 Output Total 500 Balance 580 200 -260 Weight 44 kg Intake: Oral 580 200 240 Output: Urine 500 Other: Voiding Method Toilet Toilet Toilet # Voids 3 1 1 - Exam GENERAL EXAM: Alert, pleasant, 57-year-old white female, comfortable in no apparent distress. HEAD: Normocephalic/atraumatic. EYES: Normal reaction of pupils, equal size. Conjunctiva pink, sclera white. NOSE: Clear with pink turbinates. THROAT: No erythema or exudates. NECK: No masses, no JVD, no thyroid enlargement, no adenopathy. CHEST: No chest wall deformity. right upper chest Thoravent discontnued LUNGS: Equal air entry with no crackles, wheeze, rhonchi or dullness. CVS: Regular rate and rhythm, normal S1 and S2, no gallops, no murmurs, no rubs ABDOMEN: Soft, nontender. No hepatosplenomegaly, normal bowel sounds, no guarding or rigidity. EXTREMITIES: No clubbing, no edema, no cyanosis, 2+ pulses and upper and lower extremities. MUSCULOSKELETAL: Muscle strength and tone normal. SPINE: No scoliosis or deformity SKIN: No rashes CENTRAL NERVOUS SYSTEM: Alert and oriented -3. No focal deficits, tone is normal in all 4 extremities. PSYCHIATRIC: Alert and oriented -3. Appropriate affect. Intact judgment and insight. - Labs CBC & Chem 7: 06/05/18 12:35 06/05/18 12:35 Assessment and Plan Plan: 1 spontaneous pneumothorax, likely secondary to underlying COPD. The patient to 50% pneumothorax on the right and the patient had a Thoravent inserted with reexpansion 2 smoker 3 chronic insomnia 4 fibromyalgia 5 chronic anxiety 6 depression 7 borderline percent disorder 8 hypothyroidism 9 peripheral neuropathy Plan: Thoravent has been discontinued this morning, it had been capped since yesterday , this morning's chest x-ray showed no pneumothorax, occlusive dressing was applied. Equal breath sounds bilaterally, maintaining stable oxygenation on room air. Awaiting ablation. From pulmonary perspective patient is stable for discharge home today, follow up with Dr. Dent in the office in one week. Nicotine cessation counseling was done. I performed a history & physical examination of the patient and discussed their management with my nurse practitioner, Sharla Lubin. I reviewed the nurse practitioner's note and agree with the documented findings and plan of care. Lung sounds are positive for clear breath sounds. The findings and the impression was discussed with the patient. I attest to the documentation by the nurse practitioner. Time with Patient: Less than 30
--- NOTE | 2018-06-12 12:16 | CDI ---
Documentation Clarification Form Date: 06/12/2018 7:17:00 AM From: Akanksha Hernandez Alayna Cisneros, Textbook Associate Hours-8:30 am & 5 pm [email or web address] Admit Date: 06/05/2018 3:15:00 PM Patient Name: Shonna Godoy Visit Number: [id number] Discharge Date: 06/10/2018 1:06:00 PM ATTENTION: The Clinical Documentation Specialists (CDI) and [facility] Coding Staff appreciate your assistance in clarifying documentation. Please respond to the clarification below the line at the bottom and electronically sign. The CDI & [facility] Coding staff will review the response and follow-up if needed. Please note: Queries are made part of the Legal Health Record. If you have any questions, please contact the author of this message via ITS. Dr. Jose F Mason The patient presented with the following pneumothorax secondary to COPD/ Emphysema. Patient developed pneumothorax and chest tube was placed in ER. Subsequent chest x-ray revealed pneumothorax improving but now with a new 10 % right axillary subcutaneous emphysema. The patient was monitored with a total of 9 CXR 's during her visit. In your professional opinion, can you please clarify the etiology of the subcutaneous emphysema? Nontraumatic subcutaneous emphysema Postprocedural subcutaneous emphysema Surgical subcutaneous emphysema Other/unspecified Other, please specify Unable to determine MTDD
== END 2018-06-10 13:06 | disposition home health service (06) | DRG 191 ==
LOC: EC 12:14 → 3SCARD 15:15
PROVIDERS: ADMIT Internal Medicine; ATTEND Internal Medicine
PROC: 0W9930Z Drainage of Right Pleural Cavity with Drainage Device, Percutaneous Approach (ICD-10-PCS; principal; 2018-06-05)
DX: J43.9 Emphysema, unspecified (principal); J93.12 Secondary spontaneous pneumothorax; G62.9 Polyneuropathy, unspecified; F17.210 Nicotine dependence, cigarettes, uncomplicated; M79.7 Fibromyalgia; M62.50 Muscle wasting and atrophy, not elsewhere classified, unspecified site; F41.0 Panic disorder [episodic paroxysmal anxiety]; F32.9 Major depressive disorder, single episode, unspecified; E03.9 Hypothyroidism, unspecified; F60.3 Borderline personality disorder; F51.04 Psychophysiologic insomnia; Z91.5 Personal history of self-harm; Z71.6 Tobacco abuse counseling; Z79.899 Other long term (current) drug therapy; Z79.890 Hormone replacement therapy; Z90.49 Acquired absence of other specified parts of digestive tract; Z80.1 Family history of malignant neoplasm of trachea, bronchus and lung
CPT/HCPCS: 32551; 36415; 71045; 71046; 80048; 80053; 82550; 82553; 83735; 84484; 85025; 85610; 85730; 93005; 96374; 99283; 99291

== ENCOUNTER → 2018-06-17 | Outpatient (CLI) | payer MEDICARE, OTHER ==
[2018-06-17 10:47] LABS: HCT 44.7 % (34.0-46.0); HGB 14.3 gm/dL (11.4-16.0); MCHC 31.9 g/dL (31.0-37.0); MCV 100.4 fL (80.0-100.0); Mean Platelet Volume 6.5; Platelet Count 250 k/uL (150-450); RBC 4.45 m/uL (3.80-5.40); RDW 12.1 % (11.5-15.5); WBC 5.4 k/uL (3.8-10.6)
[2018-06-17 10:56] LABS: Appearance,Urine Clear (Clear); Bilirubin,Urine Negative (Negative); Blood,Urine Small (Negative); Color,Urine Yellow; Glucose,Urine (UA) Negative (Negative); Ketones,Urine Negative (Negative); Leukocyte Esterase,Urine Negative (Negative); Nitrite,Urine Negative (Negative); PH, Urine 6.5 (5.0-8.0); Protein,Urine Negative (Negative); RBC,Urine 9 /hpf (0-5); Squamous Epithelial Cell,Urine <1 /hpf (0-4); Urobilinogen,Urine <2.0 mg/dL (<2.0); WBC,Urine 1 /hpf (0-5)
[2018-06-17 17:23] LABS: Albumin 4.5 g/dL (3.80-4.90); Albumin/Globulin Ratio 2.37 (1.60-3.17); Anion Gap 5.9 mmol/L (4.00-12.00); Calcium 9.3 mg/dL (8.7-10.3); Carbon Dioxide 31.1 mmol/L (21.6-31.8); Globulin 1.9 g/dL (1.6-3.3); Potassium 4.8 mmol/L (3.5-5.5); Total Bilirubin 0.6 mg/dL (0.3-1.2); Total Protein 6.4 g/dL (6.2-8.2)
[2018-06-17 17:24] LABS: Phosphorus 3.7 mg/dL (2.4-5.1)
== END ==
LOC: LABWHC1 09:38
PROVIDERS: ATTEND Internal Medicine
DX: D64.9 Anemia, unspecified (principal); N39.0 Urinary tract infection, site not specified; E83.39 Other disorders of phosphorus metabolism
CPT/HCPCS: 36415; 80053; 81001; 84100; 85027

== ENCOUNTER → 2018-07-07 | Outpatient (CLI) | payer MEDICARE, OTHER ==
--- NOTE | 2018-07-07 14:49 | US ---
EXAMINATION TYPE: US kidneys/renal and bladder DATE OF EXAM: 07/07/2018 COMPARISON: CT urogram December 17, 2017 CLINICAL HISTORY: E83.52 Hypercalcemia. EXAM MEASUREMENTS: Right Kidney: 10.0 X 3.3 X 4.3 cm Left Kidney: 10.2 X 5.5 X 4.8 cm Right Kidney: No hydronephrosis or masses seen Left Kidney: No hydronephrosis or masses seen Bladder: WNL Bilateral Jets seen: Yes There is no evidence for hydronephrosis at this point in time. No nephrolithiasis is seen. No jena s are identified. The urinary bladder is anechoic. Bilateral ureteral jets are seen. IMPRESSION: Previously visualized 3 mm calculus mid pole level left kidney is not clearly seen on ultrasound. Mark rly unremarkable ultrasound study.
== END ==
LOC: RADUSWWP 14:00
PROVIDERS: ATTEND Internal Medicine
DX: E83.52 Hypercalcemia (principal)
CPT/HCPCS: 76770

== ENCOUNTER → 2018-07-17 | Outpatient (CLI) | payer MEDICARE, OTHER | END | disposition home or self-care (01) | LOC: LABWHC1 08:41 | PROVIDERS: ATTEND Family Medicine | DX: R63.6 Underweight (principal) | CPT/HCPCS: 36415; 82607; 82947 ==